=== PATIENT | male | born 1985 | race Two or more races ===

== ENCOUNTER 2024-06-29 16:00 | Inpatient (IN) | payer MEDICAID, OTHER ==
[~2024-06-29] VITALS: Ht 165.1 cm; Wt 71.6 kg
--- NOTE | 2024-06-29 16:18 | ED.PDOC ---
GI ASSESSMENT HPI Comments HPI: Poor Historian. 39 y.o male presents to the ED for an initial complaint of epigastric pain associated with nausea and 2 episodes of vomiting that started today at 0800. Patient reports pain is constant, raring a 10/10 on the pain scale, is non radiating, and has no alleviating or precipitating factors. Patient was seen at urgent care today for c/o but was sent to the ED due to blood glucose reading 448. Patient denies any diarrhea, constipation, fever, chills. Patient has family history of DM. Vital signs: BP: 147/95 HR: 95 Temp: 98.5 F SPO2: 98% RA RR: 16 Patient denies any allergies Past medical history: Denies Past surgical history: Appendectomy REVIEW OF SYSTEMS: CONSTITUTIONAL: Denies acute: fever, diaphoresis, chills, generalized weakness. HEAD: Denies acute: headache, photophobia Eyes: Denies acute: Double vision, vision loss, eye pain, eye discharge. EARS: Denies acute: tinnitus, hearing loss, ear discharge, ear pain, THROAT: Denies acute: sore throat, swelling, difficulty swallowing , pain with swallowing, change in voice. NECK: Denies acute: neck pain, neck swelling, stiff neck. HEART: Denies acute : chest pain, palpitations, LUNGS: Denies acute: SOB, wheezing, cough, hemoptysis ABDOMEN: Denies acute: , diarrhea, melena , hematemesis, hematochezia SKIN: Denies acute: rash, redness, lesions, itchiness. EXTREMITIES: Denies acute: calf pain, numbness, tingling, weakness, denies pain in extremity. Denies acute: Low back pain. Neuro: Denies acute: focal neurological deficit, motor or sensory focal neurological deficit, tremors, seizure like activity, confusion, dizziness, change in mental status, loss of bowel or bladder function, cauda equina like symptoms. : Denies acute: dysuria, hematuria, flank pain, increase in urinary frequency. PSYCH: Denies acute: hallucination, suicidal ideation, homicidal ideation. PHYSICAL EXAM: General: no acute distress, awake and alert. Head: normocephalic, atraumatic. Neck: supple, trachea is midline, no swelling. Throat: Normal phonation. Eyes:, no erythema, no purulent discharge, no proptosis, no icterus. Heart: regular rate, regular rhythm, no significant murmur appreciated. Lungs: no apparent respiratory distress, Able to speak in full sentences. No wheezing, no rhonchi, no crackles. No stridors Clear to auscultation bilaterally. Abdomen: Epigastric tender to palpation, non distended, soft, no guarding, no rebound, + bowel sounds. Neuro: Awake, Alert, oriented to name, self, situation, follows commands GCS=15. Speech is normal. Skin: no petechia, no purpura, no cyanosis, non-pale, not jaundice. Lower extremities: --no - Pitting edema no deformity, no focal swelling, no calf TTP. Makes eye contact. moves all four extremities. Face: no apparent facial droop. Ambulating in the ED independently. No nuchal rigidity, Kernig's sign, Brudzinski's sign, no meningeal signs. Time Seen by MD: 16:08 Reviewed Notes: Allergies Allergies: Coded Allergies: NO KNOWN ALLERGIES (Unverified , 06/29/24) Information Source: Patient Mode of Arrival: Ambulatory Timing: Hours Duration: Since onset Past Medical History PAST MEDICAL HISTORY: Denies Surgical History: Appendectomy Family History Family History: Family hx of DM Social History Smoker: Non-Smoker Alcohol: Occasionally Drugs: Denies Drug Use Lives In: Home Was a procedure done? Was a procedure done?: No GI differential Dx Differential Diagnosis: Gastroenteritis, Inflammatory BD, Other (DDX include but not limited to diverticulitis, colitis, gastroenteritis, acute abdomen, SBO, enteritis, constipation, volvulus, appendicitis, Gallbladder disease, choledocolithiasis, ascending cholangitis, pancreatitis, intraAbdominal mass/neoplasm, hepatitis, UTI, pylonephritis, kidney stone, aneurysm, dissection, Inflammatory bowel disease, gastroparesis, ischemic bowel.) X-Ray, Labs, Meds, VS Vital Signs Date Time Temp Pulse Resp B/P (MAP) Pulse Ox O2 Delivery O2 Flow Rate FiO2 06/29/24 19:40 Room Air* 0 21 06/29/24 19:40 94 18 101/75 (84) 98 06/29/24 17:26 98 16 144/95 (111) 96 06/29/24 16:15 98.5 95 16 147/95 (112) 98 Lab Test 06/29/24 19:40 06/29/24 18:10 06/29/24 17:29 06/29/24 17:26 Range/Units POC Glucose 316 H 337 H 70-106 mg/dl Urine Color Light-yellow Yellow Urine Clarity Clear Clear Urine pH 5.0 5.0-9.0 Urine Specific [place] 1.038 H 1.001-1.035 Urine Protein Negative Negative Urine Ketones 4+ H Negative Urine Blood Negative Negative /uL Urine Nitrite Negative Negative Urine Bilirubin Negative Negative Urine Urobilinogen Normal Negative mg/dL Urine Leukocyte Esterase Negative Negative /uL Urine RBC <1 0 - 3 /hpf Urine WBC <1 0 - 3 /hpf Urine Squamous Epithelial Cells None seen <5 /hpf Urine Bacteria None seen None Seen /hpf Urine Glucose 4+ H Normal mg/dL Urine Opiates Screen Neg NEGATIVE Urine Fentanyl Screen Neg NEGATIVE Urine Barbiturates Screen Neg NEGATIVE Urine Phencyclidine Screen Neg NEGATIVE Urine Amphetamines Screen Neg NEGATIVE Urine Benzodiazepines Screen Neg NEGATIVE Urine Cocaine Screen Neg NEGATIVE Urine Cannabinoids Screen Neg NEGATIVE Troponin I High Sensitivity < 3 L </=54 ng/L Test 06/29/24 16:36 Range/Units White Blood Count 10.2 4.4-10.8 10^3/uL Red Blood Count 4.51 4.5-5.90 10^6/uL Hemoglobin 13.3 L 13.5-17.5 g/dL Hematocrit 40.5 L 41.0-53.0 % Mean Corpuscular Volume 89.8 80.0-100.0 fL Mean Corpuscular Hemoglobin 29.4 28.0-32.0 pg Mean Corpuscular Hemoglobin Concent 32.7 32.0-36.0 g/dL Red Cell Distribution Width 14.3 11.8-14.3 % Platelet Count 206 140-450 10^3/uL Mean Platelet Volume 10.2 6.9-10.8 fL Neutrophils (%) (Auto) 87.8 H 37.0-80.0 % Lymphocytes (%) (Auto) 6.1 L 10.0-50.0 % Monocytes (%) (Auto) 5.9 0.0-12.0 % Eosinophils (%) (Auto) 0.1 0.0-7.0 % Basophils (%) (Auto) 0.3 0.0-2.0 % Neutrophils # (Auto) 7.9 1.6-8.6 10 ^3/uL Lymphocytes # (Auto) 0.5 0.4-5.4 10 ^3/uL Monocytes # (Auto) 0.5 0-1.3 10 ^3/uL Eosinophils # (Auto) 0 0-0.8 10 ^3/uL Basophils # (Auto) 0 0-0.2 10 ^3/uL Nucleated Red Blood Cells 0.3 % Sodium Level 129 L 136-145 mmol/L Potassium Level 5.1 3.5-5.1 mmol/L Chloride Level 97 L 98-107 mmol/L Carbon Dioxide Level 22 20-31 mmol/L Anion Gap 10 5-15 Blood Urea Nitrogen 10 9-23 mg/dL Creatinine 0.99 0.700-1.30 mg/dL Glomerular Filtration Rate Calc 99 >90 mL/min BUN/Creatinine Ratio 10.1 10.0-20.0 Serum Glucose 370 H 74-106 mg/dL Lactic Acid Level 1.2 0.4-2.0 mmol/L Calcium Level 9.9 8.7-10.4 mg/dL Magnesium Level 2.0 1.6-2.6 mg/dL Total Bilirubin 0.7 0.2-1.0 mg/dL Aspartate Amino Transferase (AST) 51 H 13-40 U/L Alanine Aminotransferase (ALT) 23 7-40 U/L Alkaline Phosphatase 61 46-116 U/L Troponin I High Sensitivity < 3 L </=54 ng/L Total Protein 7.4 5.7-8.2 g/dL Albumin 5.0 H 3.2-4.8 g/dL Lipase 944 H 12-53 U/L Beta-Hydroxybutyric Acid > 4.500 H < 0.4 mmol/L Current Medications Medications (Trade) Dose Ordered Sig/Shay Route Start Time Stop Time Status Last Admin Sodium Chloride 1,000 ml @ 1,000 mls/hr Q1H ONCE IV 06/29/24 16:15 06/29/24 17:14 DC 06/29/24 17:37 Insulin Human Regular (InsuLIN R) 5 units ONCE ONCE IV 06/29/24 19:00 06/29/24 19:01 DC 06/29/24 19:[address] [address] Ph: [phone] DIAGNOSTIC IMAGING Diagnostic Imaging Report : [id number] Signed PATIENT: RENAE CARLISLE ACCT: [id number] UNIT: [id number] : 1985 LOC: ER ROOM / BED: / AGE / SEX: 39 / M ADM STATUS: REG ER SERVICE 1617 ORDERING PHYSICIAN: CONNIE BRENNER DO PROCEDURE(s): ABPL - CT AB PEL WO CON-NO ORAL OR IV REASON: Epigastric pain with N/V ORDER NUMBER(s): [id number], ACCESSION NUMBER(s): [id number] CT ABDOMEN AND PELVIS WITHOUT CONTRAST CLINICAL HISTORY: Epigastric pain with N/V TECHNIQUE: Multidetector CT of the abdomen was performed from lung bases to pubic symphysis. Imaging was performed without IV contrast. Axial, coronal and sagittal multiplanar reformats were obtained from the axial data set by the technologist. Radiation optimization: All CT scans at this facility use at least one of these dose optimization techniques: automated exposure control mA and/or kV adjustment per patient size (includes targeted exams where dose is matched to clinical indication) or iterative reconstruction. Radiation Dose Information: CT Dose: CTDI volume is 7.65 mGy. Dose-length product is 393.19 mGy*cm Comparison: None FINDINGS: [Findings] Evaluation of the abdominal viscera is limited without intravenous contrast. There is fat stranding along the body and tail of the pancreas compatible with acute pancreatitis. There is no discrete pancreatic fluid collection. There is no evidence of a pancreatic cyst or obvious pancreatic lesion. There is fatty infiltration of the liver. There is no suspicious appearing hepatic lesion. The gallbladder, kidneys, adrenal glands, and spleen appear within normal limits. There is no gross evidence of abdominal lymphadenopathy. There is no free fluid or free air. The stomach grossly appears unremarkable. The small and large bowel loops demonstrate normal caliber and appear within normal limits.. The abdominal aorta and IVC appear within normal limits. The bladder appears unremarkable. The prostate gland appears within normal limits. There is no gross evidence of a pelvic mass or lymphadenopathy. There is no free fluid collection. Lung bases are clear. There is no acute osseous abnormality. IMPRESSION: 1. Fat stranding along the body and tail of the pancreas compatible with acute pancreatitis. There is no discrete pancreatic fluid collection. 2. Hepatic steatosis. HS:Y ATED BY: BRADLEY HOLLAND MD DICTATED DATE/TIME: 06/29/241652 SIGNED BY: BARDLEY HOLLAND MD SIGNED DATE/TIME: 06/29/241652 CC: Time of 1ST Reevaluation: 16:14 Reevaluation 1ST: Unchanged Time of 2ND Reevaluation: 18:48 (As of this time, multiple lab analysis are still pending including UA, drug screen, CMP ) Patient Education/Counseling: Diagnosis, Treatment Family Education/Counseling: No Family Present Comments Patient presented with the above HPI.--epigastric pain/-nausea vomiting---workup was initiated. patient was found with the above mentioned diagnosis. Patient Had a strong odor of marijuana. Patient was given: Fluids, Zofran, insulin Patient ED course and VS have been stabilized. Patient has been reassessed in the ED and remained in a stable condition. Pertinent incidental findings were discussed with the patient and/or family. Patient/family voices understanding and is agreeable with plan. Patient has been observed in the ED adequate length of time to insure improvement/stability. patient was admitted to the medicine team for further evaluation and treatment of their presentation. All the reports of any imaging studies that were ordered by myself were reviewed by myself. Departure 1 Departure Time of Disposition: 18:13 Impression: Primary Impression: Epigastric pain Additional Impressions: Pancreatitis Hyperglycemia Disposition: ADMITTED INPATIENT Admit to: Tele Condition: Guarded Discharged With: Self Critical Care Note Critical Care Time?: Yes (35 min-critical care time only) I personally scribed for CONNIE BRENNER DO ([email or web address]) on 06/29/24 at 16:18. Electronically submitted by [facility] ([facility]). I personally scribed for CONNIE BRENNER DO ([email or web address]) on 06/29/24 at 18:03. Electronically submitted by [place] [facility] ([facility]). I personally scribed for CONNIE BRENNER DO ([email or web address]) on 06/29/24 at 18:49. Autumn ctronically submitted by [place] ([facility]). CONNIE BRENNER DO Jun 29, 2024 16:18
--- NOTE | 2024-06-29 16:55 | DVH ---
CT ABDOMEN AND PELVIS WITHOUT CONTRAST CLINICAL HISTORY: Epigastric pain with N/V TECHNIQUE: Multidetector CT of the abdomen was performed from lung bases to pubic symphysis. Imaging was performed without IV contrast. Axial, coronal and sagittal multiplanar reformats were obtained fr om the axial data set by the technologist. Radiation optimization: All CT scans at this facility use at least one of these dose optimization carolin hniques: automated exposure control mA and/or kV adjustment per patient size (includes targeted exam s where dose is matched to clinical indication) or iterative reconstruction. Radiation Dose Information: CT Dose: CTDI volume is 7.65 mGy. Dose-length product is 393.19 mGy*cm Comparison: None FINDINGS: [Findings] Evaluation of the abdominal viscera is limited without intravenous contrast. There is fat stranding along the body and tail of the pancreas compatible with acute pancreatitis. Th ere is no discrete pancreatic fluid collection. There is no evidence of a pancreatic cyst or obvious pancreatic lesion. There is fatty infiltration of the liver. There is no suspicious appearing hepatic lesion. The gallbladder, kidneys, adrenal glands, and spleen appear within normal limits. There is no gross evidence of abdominal lymphadenopathy. There is no free fluid or free air. The stomach grossly appears unremarkable. The small and large bowel loops demonstrate normal caliber and appear within normal limits.. The abdominal aorta and IVC appear within normal limits. The bladder appears unremarkable. The prostate gland appears within normal limits. There is no gross evidence of a pelvic mass or lymphadenopathy. There is no free fluid collection. Lung bases are clear. There is no acute osseous abnormality. IMPRESSION: 1. Fat stranding along the body and tail of the pancreas compatible with acute pancreatitis. There is no discrete pancreatic fluid collection. 2. Hepatic steatosis. HS:Y
[2024-06-29] MEDS: SODIUM CHLORIDE 0.9% 1,000 ML IV ONE (17:37)
[2024-06-29 18:03] LABS: Basophils # (auto) 0 10 ^3/uL (0-0.2); Basophils % (auto) 0.3 % (0.0-2.0); Eosinophils # (auto) 0 10 ^3/uL (0-0.8); Eosinophils % (auto) 0.1 % (0.0-7.0); Hematocrit 40.5 % (41.0-53.0); Hemoglobin 13.3 g/dL (13.5-17.5); Lymphocytes # (auto) 0.5 10 ^3/uL (0.4-5.4); Lymphocytes % (auto) 6.1 % (10.0-50.0); Monocytes # (auto) 0.5 10 ^3/uL (0-1.3); Monocytes % (auto) 5.9 % (0.0-12.0); Neutrophils # (auto) 7.9 10 ^3/uL (1.6-8.6); Nucleated Red Blood Cells % 0.3 %; Red Blood Cells 4.51 10^6/uL (4.5-5.90); Red Cell Distribution Width 14.3 % (11.8-14.3)
[2024-06-29 18:08] LABS: Neutrophils % (auto) 87.8 % (37.0-80.0); White Blood Cell 10.2 10^3/uL (4.4-10.8)
[2024-06-29 18:09] LABS: Mean Corpuscular Hemoglobin 29.4 pg (28.0-32.0); Mean Corpuscular Hgb Conc. 32.7 g/dL (32.0-36.0); Mean Corpuscular Volume 89.8 fL (80.0-100.0); Platelet Count (auto) 206 10^3/uL (140-450)
[2024-06-29 18:12] LABS: Urine Bacteria None Seen /hpf (None Seen)
[2024-06-29 18:17] LABS: Chloride 97 mmol/L (98-107); Sodium 129 mmol/L (136-145)
[2024-06-29 18:20] LABS: Calcium 9.9 mg/dL (8.7-10.4)
[2024-06-29 18:24] LABS: Glucose 370 mg/dL (74-106)
[2024-06-29 18:48] LABS: Amphetamine Screen, Urine Neg (NEGATIVE)
[2024-06-29 18:49] LABS: Barbiturate Scree,Urine Neg (NEGATIVE); Benzodiazephine Screen, Urine Neg (NEGATIVE); Cannabinoid Screen, Urine Neg (NEGATIVE); Cocaine Screen, Urine Neg (NEGATIVE); Opiate Scree,Urine Neg (NEGATIVE); Phencyclidine Screen, Urine Neg (NEGATIVE)
[2024-06-29 19:06] LABS: Urine Blood Negative /uL (Negative); Urine Clarity Clear (Clear); Urine Color Light-Yellow (Yellow); Urine Protein, UAD Negative (Negative); Urine Specific Gravity 1.038 (1.001-1.035); Urine Urobilinogen Normal (Negative); Urine WBC <1 /hpf (0 - 3)
[2024-06-29 19:09] LABS: Alkaline Phosphatase 61 U/L (46-116); Anion Gap 10 (5-15); BUN/Creatinine Ratio 10.1 (10.0-20.0); Bilirubin, Total 0.7 mg/dL (0.2-1.0); Blood Urea Nitrogen 10 mg/dL (9-23); Carbon Dioxide 22 mmol/L (20-31); Lipase 944 U/L (12-53); Potassium 5.1 mmol/L (3.5-5.1); Total Protein 7.4 g/dL (5.7-8.2)
[2024-06-29 19:28] LABS: Alanine Aminotransferase 23 U/L (7-40); Aspartate Aminotransferase 51 U/L (13-40)
[2024-06-29] MEDS: InsuLIN REG 1unit/0.01ml Soln (100units/ml) IV ONE (19:45)
[2024-06-29] MEDS ORDERED: MORPHINE SULFATE INJ 2 MG/ml SYRG IV PRN (20:30)
[2024-06-29] MEDS ORDERED: NITROGLYCERIN 0.4 MG SL TAB SL PRN (20:30)
[2024-06-29 20:59] LABS: Eosinophils # (auto) 0 10 ^3/uL (0-0.8)
[2024-06-29 21:00] LABS: Lymphocytes # (auto) 0.5 10 ^3/uL (0.4-5.4)
[2024-06-29 21:20] LABS: Albumin 4.4 g/dL (3.2-4.8); Alkaline Phosphatase 61 U/L (46-116); Anion Gap 22.00001 (5-15); Bilirubin, Total 0.3 mg/dL (0.2-1.0); Blood Alcohol < 3.0 mg/dL (<10); Calcium 9.3 mg/dL (8.7-10.4); Chloride 97 mmol/L (98-107); Glucose 310 mg/dL (74-106); Potassium 4.3 mmol/L (3.5-5.1); Sodium 129 mmol/L (136-145); Total Protein 6.9 g/dL (5.7-8.2)
[2024-06-29 21:57] LABS: BUN/Creatinine Ratio 6.2 (10.0-20.0); Blood Urea Nitrogen < 5 mg/dL (9-23)
[2024-06-29 21:59] LABS: Carbon Dioxide < 10 mmol/L (20-31)
[2024-06-29 22:02] LABS: Aspartate Aminotransferase 29 U/L (13-40)
[2024-06-29 22:03] LABS: Alanine Aminotransferase 19 U/L (7-40); Lipase 444 U/L (12-53)
[2024-06-29 22:13] LABS: Basophils % (auto) 0.2 % (0.0-2.0); Lymphocytes % (auto) 5.7 % (10.0-50.0); Monocytes % (auto) 7.4 % (0.0-12.0); Neutrophils % (auto) 86.7 % (37.0-80.0); Platelet Count (auto) 206 10^3/uL (140-450); White Blood Cell 10.2 10^3/uL (4.4-10.8)
[2024-06-29 22:14] LABS: Basophils # (auto) 0.2 10 ^3/uL (0-0.2); Hematocrit 43.4 % (41.0-53.0); Monocytes # (auto) 0.6 10 ^3/uL (0-1.3); Neutrophils # (auto) 7.3 10 ^3/uL (1.6-8.6)
[2024-06-29 22:15] LABS: Mean Corpuscular Hemoglobin 31.2 pg (28.0-32.0); Mean Corpuscular Hgb Conc. 34.5 g/dL (32.0-36.0); Red Cell Distribution Width 13.2 % (11.8-14.3)
[2024-06-29] MEDS ORDERED: DEXTROSE (50%) 50ML SYRG IV PRN (22:15)
--- NOTE | 2024-06-29 22:28 | DVHHPRES ---
History of Present Illness Resident Creating Document: TERRY OWUSU RESIDENT History of Present Illness RENAE SMITH 39 years old male with no significant PMH presented to the ED with the chief complaints of acute epigastric pain which started in the morning before breakfast. Patient's reported pain has been started in the morning associated with nausea, vomiting, initially epigastric then diffuse left abdominal pain which is constant 10/10, nothing makes it better or worse, patient went to urgent care, advanced to go to ED due to symptoms and Thanh glucose reading for 48. On my assessment patient and his fever, chills, diarrhea, constipation, and other acute symptoms Past Medical History Denies Past Surgical History: Appendectomy Family History: DM Past Social History Lives with a friend. Every week 10 beers, last drink was yesterday. Denies smoking another drug abuse Review of Systems Constitutional: No: Fever, Chills, Sweats, Weakness, Malaise, Other Eyes: No: Pain, Vision change, Conjunctivae inflammation, Eyelid inflammation, Other, Redness ENT: No: Ear pain, Ear discharge, Nose pain, Nose discharge, Nose congestion, Mouth pain, Mouth swelling, Throat pain, Throat swelling, Other Respiratory: No: Cough, Dry, Shortness of breath, SOB with excertion, Wheezing, Hemoptysis, Pleuritic Pain, Sputum, Wheezing, Other Cardiovascular: No: Chest Pain, Palpitations, Orthopnea, Paroxysmal Noc. Dyspnea, Edema, Lt Headedness, Other Gastrointestinal: Nausea, Vomiting, Abdominal Pain Genitourinary: No Dysuria, No Frequency, No Incontinence, No Hematuria, No Retention, No Other Musculoskeletal: No: other, neck pain, shoulder pain, arm pain, back pain, hand pain, leg pain, foot pain Skin: No: Rash, Lesions, Jaundice, Bruising, Other Neurological: No: Weakness, Numbness, Incoordination, Change in speech, Confusion, Seizures, Other Allergies: Coded Allergies: NO KNOWN ALLERGIES (Unverified , 06/29/24) Medications Current Medications Medications Dose Ordered Sig/Shay Route Start Time Stop Time Status Last Admin Dose Admin Sodium Chloride 1,000 ml @ 120 mls/hr Q8H20M IV 06/29/24 20:30 Ondansetron HCl 4 mg Q4HP PRN IV 06/29/24 20:30 Acetaminophen 650 mg Q6HP PRN PO 06/29/24 20:30 Morphine Sulfate 2 mg Q4HPRN PRN IV 06/29/24 20:30 Nitroglycerin 0.4 mg Q5MINP PRN SL 06/29/24 20:30 Morphine Sulfate 2 mg Q30M PRN IV 06/29/24 20:30 Sodium Chloride 1,000 ml @ 500 mls/hr Q2H IV 06/29/24 22:15 06/30/24 02:14 Sodium Chloride 1,000 ml @ 250 mls/hr Q4H IV 06/30/24 02:15 06/30/24 04:14 Sodium Chloride 1,000 ml @ 150 mls/hr Q6H40M IV 06/30/24 04:15 Insulin Human (Reg)/Sodium Chloride 100 ml @ 0.5 mls/hr Q24H IV 06/29/24 22:15 Dextrose 50 ml UD PRN IV 06/29/24 22:15 Diagnostic Test (Pha) 1 strip Q90MIN 06/29/24 22:30 Exam Vital Signs Vital Signs Date Time Temp Pulse Resp B/P (MAP) Pulse Ox O2 Delivery O2 Flow Rate FiO2 06/29/24 19:40 Room Air* 0 21 06/29/24 19:40 94 18 101/75 (84) 98 06/29/24 16:15 98.5 Exam Pt is lying on bed General Appearance: Alert, Oriented X3, Cooperative, Not in acute distress HEENT: Atraumatic, Mucous membranes moist/pink Respiratory: Clear to auscultation, Normal air movement, No added sounds Cardiovascular: Regular rate, Normal S1, Normal S2, No murmurs Abdominal: Epigastric and, left-sided abdominal tenderness Extremities: No edema, Normal pulses, No tenderness/swelling Skin: No Significant rash, except past surgical scars Neuro: Normal speech, sensorimotor deficits none Psych/Mental Status: Mental status NL, Mood NL Nurse was there as sharperone during examination Labs/Xrays Labs Test 06/29/24 22:11 06/29/24 20:47 06/29/24 19:40 06/29/24 18:10 Range/Units White Blood Count 10.2 4.4-10.8 10^3/uL Red Blood Count 4.80 4.5-5.90 10^6/uL Hemoglobin 15.0 13.5-17.5 g/dL Hematocrit 43.4 41.0-53.0 % Mean Corpuscular Volume 90.0 80.0-100.0 fL Mean Corpuscular Hemoglobin 31.2 28.0-32.0 pg Mean Corpuscular Hemoglobin Concent 34.5 32.0-36.0 g/dL Red Cell Distribution Width 13.2 11.8-14.3 % Platelet Count 206 140-450 10^3/uL Mean Platelet Volume 10.3 6.9-10.8 fL Neutrophils (%) (Auto) 86.7 H 37.0-80.0 % Lymphocytes (%) (Auto) 5.7 L 10.0-50.0 % Monocytes (%) (Auto) 7.4 0.0-12.0 % Eosinophils (%) (Auto) 0.0 0.0-7.0 % Basophils (%) (Auto) 0.2 0.0-2.0 % Neutrophils # (Auto) 7.3 1.6-8.6 10 ^3/uL Lymphocytes # (Auto) 0.5 0.4-5.4 10 ^3/uL Monocytes # (Auto) 0.6 0-1.3 10 ^3/uL Eosinophils # (Auto) 0 0-0.8 10 ^3/uL Basophils # (Auto) 0.2 0-0.2 10 ^3/uL Nucleated Red Blood Cells 0.0 % Sodium Level 129 L 136-145 mmol/L Potassium Level 4.3 3.5-5.1 mmol/L Chloride Level 97 L 98-107 mmol/L Carbon Dioxide Level < 10 #*L 20-31 mmol/L Anion Gap 22.20274 H 5-15 Blood Urea Nitrogen < 5 L 9-23 mg/dL Creatinine 0.81 0.700-1.30 mg/dL Glomerular Filtration Rate Calc 114 >90 mL/min BUN/Creatinine Ratio 6.2 L 10.0-20.0 Serum Glucose 310 H 74-106 mg/dL Calcium Level 9.3 8.7-10.4 mg/dL Total Bilirubin 0.3 0.2-1.0 mg/dL Aspartate Amino Transferase (AST) 29 13-40 U/L Alanine Aminotransferase (ALT) 19 7-40 U/L Alkaline Phosphatase 61 46-116 U/L Total Protein 6.9 5.7-8.2 g/dL Albumin 4.4 3.2-4.8 g/dL Lipase 444 H 12-53 U/L Plasma/Serum Blood Alcohol < 3.0 <10 mg/dL POC Glucose 316 H 70-106 mg/dl Urine Color Light-yellow Yellow Urine Clarity Clear Clear Urine pH 5.0 5.0-9.0 Urine Specific [place] 1.038 H 1.001-1.035 Urine Protein Negative Negative Urine Ketones 4+ H Negative Urine Blood Negative Negative /uL Urine Nitrite Negative Negative Urine Bilirubin Negative Negative Urine Urobilinogen Normal Negative mg/dL Urine Leukocyte Esterase Negative Negative /uL Urine RBC <1 0 - 3 /hpf Urine WBC <1 0 - 3 /hpf Urine Squamous Epithelial Cells None seen <5 /hpf Urine Bacteria None seen None Seen /hpf Urine Glucose 4+ H Normal mg/dL Urine Opiates Screen Neg NEGATIVE Urine Fentanyl Screen Neg NEGATIVE Urine Barbiturates Screen Neg NEGATIVE Urine Phencyclidine Screen Neg NEGATIVE Urine Amphetamines Screen Neg NEGATIVE Urine Benzodiazepines Screen Neg NEGATIVE Urine Cocaine Screen Neg NEGATIVE Urine Cannabinoids Screen Neg NEGATIVE Test 06/29/24 17:29 06/29/24 16:36 Range/Units Troponin I High Sensitivity < 3 L </=54 ng/L Lactic Acid Level 1.2 0.4-2.0 mmol/L Assessment/Plan Assessment/Plan # acute pancreatitis due to hypertriglyceridemia -elevated lipase ang TG -evident on CT abdomen and pelvis -morphine and Zofran as needed -NPO for now -IVF @ 120 mL/hour -monitor lab # hyponatremia -currently on IVF -monitor lab # DKA # anion gap metabolic acidosis # severe hyperglycemia bc newly diagnosed T2DM DM -currently on insulin protocol -continuously monitor lab -correct electrolytes if needed No VTE PPX as patient is ambulatory Protonix Diabetic diet Goals of care discussed with the patient for more than 27 minutes: Full code status Case management discussed with Dr. Greco, patient's nurse Plan discussed with: Patient My Orders Orders - TERRY OWUSU RESIDENT Procedure Category Date Status Time Allergies CHANDU 06/29/24 In Process 20:20 Sodium Chloride 0.9% PHA 06/29/24 In Process 20:30 Ondansetron Hcl PHA 06/29/24 In Process (Zofran) 20:30 Complete Blood Count LAB 06/30/24 Verified 04:00 Comprehensive LAB 06/30/24 Verified Metabolic Panel 04:00 Npo (Nothing By DIET 06/30/24 Transmitted Mouth) Diet Breakfast Acetaminophen Tablet PHA 06/29/24 In Process (Tylenol Tablet) 20:30 Morphine Sulfate PHA 06/29/24 In Process Injection 20:30 Nitroglycerin PHA 06/29/24 In Process Sublingual (Ntrostat 20:30 Morphine Sulfate PHA 06/29/24 In Process Injection 20:30 Oxygen By Nasal RT 06/29/24 Transmitted Cannula 20:20 Stat Ekg For Chest CHANDU 06/29/24 In Process Pain 20:20 Notify Of Changes CHANDU 06/29/24 In Process From Base 20:20 Bed Laborer For BANNER 06/29/24 In Process 24 Hours 20:20 Emergency Dysrhythmia BANNER 06/29/24 In Process Protocol 20:20 Rhythm Strips Once BANNER 06/29/24 In Process Every Shift 20:20 Admit ADMIT 06/29/24 Transmitted 22:06 Abg W/ Co-Ox RT 06/29/24 Logged 22:06 Hemoglobin A1c LAB 06/29/24 Logged 22:06 Vitamin D, 25-Hydroxy LAB 06/29/24 Logged 22:06 Vitamin B12 LAB 06/29/24 Logged 22:06 Thyroid Stimulating LAB 06/29/24 Logged Hormone 22:06 Lipid Panel LAB 06/29/24 Logged 22:06 Chest Xray 1 View XY 06/29/24 Taken 22:08 Lactic Acid W/ Reflex LAB 06/29/24 Logged Order 22:14 TERRY OWUSU RESIDENT Jun 29, 2024 22:28
[2024-06-29 22:39] LABS: Base Excess -11.9 mmol/L (-2.0-3.0)
[2024-06-29] MEDS: SODIUM CHLORIDE 0.9% 1,000 ML IV SCH ×2 (22:50→23:30)
--- NOTE | 2024-06-29 22:58 | DVH ---
CHEST RADIOGRAPH Indication:sob Technique: Single frontal view of the chest was obtained Comparison: None FINDINGS: Lines and Tubes: None Lungs: No focal consolidation. Pleura: No effusion. No pneumothorax. Cardiomediastinal contours: Unremarkable Bones: No acute osseous abnormality. IMPRESSION: No acute cardiopulmonary disease.
[2024-06-29 23:00] VITALS: PULSE 95; RESP 26; O2SAT 97
[2024-06-29] MEDS: INSULIN DRIP 100 UNIT/100ML 100 ML IV SCH (23:10)
[2024-06-29] MEDS: ACCU-CHEK COMFORT CURVE STRIP VI SCH (23:12)
[2024-06-29 23:24] LABS: LDL Cholesterol 55 mg/dL (< 100)
[2024-06-29 23:25] LABS: Cholesterol 412 mg/dL (< 200)
[2024-06-29 23:26] LABS: Magnesium 1.9 mg/dL (1.6-2.6); Phosphorus 2.9 mg/dL (2.4-5.1)
[2024-06-29 23:54] LABS: HDL Cholesterol 24 mg/dL (40-59)
[2024-06-30] VITALS (19 sets, daily range): BP systolic 108–139; BP diastolic 72–91; PULSE 96–114; RESP 15–44; TEMP 99.6; O2SAT 93–99
[2024-06-30 01:50] LABS: Triglycerides 1969 mg/dL (< 150)
[2024-06-30] MEDS: MORPHINE SULFATE INJ 2 MG/ml SYRG IV PRN (01:53)
[2024-06-30] MEDS: ONDANSETRON HCL 4 MG/2 ML VIAL IV PRN (01:55)
[2024-06-30] MEDS ORDERED: SODIUM CHLORIDE 0.9% 1,000 ML IV SCH ×2 (02:15→04:15)
[2024-06-30] MEDS: D5W/SOD CHL 0.45% 1,000 ML IV SCH (02:30)
[2024-06-30 07:33] LABS: Albumin 3.9 g/dL (3.2-4.8); Alkaline Phosphatase 51 U/L (46-116); Anion Gap 16.00001 (5-15); Basophils # (auto) 0.1 10 ^3/uL (0-0.2); Basophils % (auto) 1.2 % (0.0-2.0); Bilirubin, Total 0.5 mg/dL (0.2-1.0); Calcium 8.4 mg/dL (8.7-10.4); Chloride 107 mmol/L (98-107); Eosinophils # (auto) 0 10 ^3/uL (0-0.8); Eosinophils % (auto) 0.2 % (0.0-7.0); Glucose 260 mg/dL (74-106); Hematocrit 39.7 % (41.0-53.0); Lymphocytes # (auto) 0.7 10 ^3/uL (0.4-5.4); Lymphocytes % (auto) 10.7 % (10.0-50.0); Mean Corpuscular Volume 90.2 fL (80.0-100.0); Monocytes # (auto) 0.8 10 ^3/uL (0-1.3); Monocytes % (auto) 13.1 % (0.0-12.0); Neutrophils # (auto) 4.7 10 ^3/uL (1.6-8.6); Neutrophils % (auto) 74.8 % (37.0-80.0); Nucleated Red Blood Cells % 0.7 %; Platelet Count (auto) 388 10^3/uL (140-450); Sodium 133 mmol/L (136-145); Total Protein 6.3 g/dL (5.7-8.2); White Blood Cell 6.3 10^3/uL (4.4-10.8)
[2024-06-30 07:34] LABS: Mean Corpuscular Hgb Conc. 37.6 g/dL (32.0-36.0)
[2024-06-30 07:40] LABS: Alanine Aminotransferase 14 U/L (7-40); Aspartate Aminotransferase 24 U/L (13-40)
[2024-06-30 07:41] LABS: BUN/Creatinine Ratio 6.8 (10.0-20.0); Blood Urea Nitrogen < 5 mg/dL (9-23)
[2024-06-30 07:44] LABS: Carbon Dioxide < 10 mmol/L (20-31)
[2024-06-30 08:08] LABS: Anisocytosis Slight; Platelet Estimate Adequate
--- NOTE | 2024-06-30 08:48 | DVHPNRES ---
Progress Note Date Seen: Jun 30, 2024 Resident Creating Document: DENIA NAVA RESIDENT Has the PT tested + for MRSA If YES, has PT been informed?: No Medical Necessity Reason Pt with a Central, PICC or Fol: No Subjective Review of Systems Saw the patient at bedside with a flower shop laborer/designer and along with my attending. Patient's questions concerns answered and detailed history taken. Patient reports: No new complaints, Feels better Changes from previous H/P or p: No Changes Review of Systems: HEENT:Normal, CVS:Normal, RESPIRATORY:Normal, GI:Abnormal (Acute abdominal pain 06/01, radiation from left upper quadrant to periumbilical area, piercing sharp in nature), :Abnormal (Dark concentrated urine), MSK:Normal, NEURO:Normal Objective vital signs Vital Sign Date Time Temp Pulse Resp B/P (MAP) Pulse Ox O2 Delivery O2 Flow Rate FiO2 06/30/24 07:30 98.2 100 27 121/78 (92) 95 98.2 06/29/24 23:00 Room Air* 0 21 Total Intake and Output 06/29/24 06/29/24 06/30/24 15:00 23:00 07:00 Intake Total 1846 ml Balance 1846 ml medications Current Medications Medications Dose Ordered Sig/Shay Route Start Time Stop Time Status Last Admin Dose Admin Ondansetron HCl 4 mg Q4HP PRN IV 06/29/24 20:30 06/30/24 01:55 4 MG Acetaminophen 650 mg Q6HP PRN PO 06/29/24 20:30 Morphine Sulfate 2 mg Q4HPRN PRN IV 06/29/24 20:30 06/30/24 01:53 2 MG Nitroglycerin 0.4 mg Q5MINP PRN SL 06/29/24 20:30 Morphine Sulfate 2 mg Q30M PRN IV 06/29/24 20:30 Insulin Human (Reg)/Sodium Chloride 100 ml @ 0.5 mls/hr Q24H IV 06/29/24 22:15 06/30/24 01:30 0.5 MLS/HR Dextrose 50 ml UD PRN IV 06/29/24 22:15 Diagnostic Test (Pha) 1 strip Q90MIN 06/29/24 22:30 06/30/24 07:30 1 STRIP Dextrose/Sodium Chloride 1,000 ml @ 200 mls/hr Q5H IV 06/30/24 02:30 06/30/24 02:30 200 MLS/HR Examination: GENERAL:Normal (Noted in acute distress, fruity smell.), HEENT:Normal, NECK:Normal, LUNGS:Abnormal (Patient breathing in the room air but shallow rapid breathing. At the time of checking no use of accessory muscles), CVS:Normal, ABDOMEN:Abnormal (Left upper quadrant severe tenderness, Brothers's negative, McBurney's negative, Rovsing negative, BS positive, abdomen soft, negative for carbo rigidity, mildly distended), MSK:Normal, SKIN:Normal, NEURO:Normal, :Normal laboratory and microbiology Laboratory Tests 06/30/24 05:29 Test 06/30/24 05:29 Range/Units Serum Glucose 260 H 74-106 mg/dL Labs and/or images reviewed: Labs reviewed by me, Image(s) reviewed by me Problem List/Assessment/Plan Problem List/Assessment/Plan Hospital course: David Childs, a 39-year-old male with a history of appendectomy and a family history of diabetes, presented to the ED with acute epigastric pain that began before breakfast and later became diffuse left abdominal pain, rated 10/10. His symptoms included nausea and vomiting, with no relief from any measures. He was referred to the ED from urgent care due to his symptoms and a glucose reading of 480s. He drinks 4-10 beers every weekend, with his last drink being yesterday, but denies smoking and drug abuse. He lives with a friend, did not follow up with the PCP and does not take any medications. He denies any similar previous episode and has no fever, chills, diarrhea, or constipation. # Acute pancreatitis due to Hypertriglyceridemia: No known previous history, we will check the patient's DD trending, on IV insulin drip along with D5, we will try to keep the blood glucose the safe range of 140-180, continue NPO as patient is not tolerating diet. Continue IV fluid, at present no signs of ARDS, intra-abdominal infection Or surgical abdomen. Unremarkable so far score, no lactic acidosis. pain management with IV Toradol scheduled along with breakthrough pain management with IV morphine. We will try to avoid morphine. Although low probability, rule out gallstone pancreatitis with RUQ U/S. # acute hyper triglyceridemia with a baseline of undiscovered familial high TG: Needs further evaluation, when the TG less than 500 we will start the patient on ezetimibe, neomycin /[place] fatty acid, dietary restriction, basal bolus insulin and other supportive treatments. # SIRS reaction: Elevated temperature, heart rate more than 90 likely due to inflammatory process. Follow daily CBC and look for amino signs of hypocalcemia, hemo concentration, lactic acidosis or acute abdominal/ surgical compensation. Unlikely accompanying infection, at this time we will defer antibiotics. # hypovolemic hyponatremia: Mild hyponatremia despite adjusting for serum glucose. Could be a case of pseudo hyponatremia partially contributed by hypertriglyceridemia. Recheck BMP q.6 for now. Avoid rapid correction limiting to 6-8 mEq per 24 hour, very unlikely to happen though. # DKA vs starvation ketosis: At the time of presentation patient did not have anion gap metabolic acidosis, hyperosmolarity, but due to nausea vomiting patient developed elevated ketosis, dehydration and further acidosis with concurrent undiscovered diabetes. # Uncontrolled diabetes mellitus, newly discovered: Patient in no any previous history, likely type 2 versus type 1, HbA1c 12, basal bolus SSI to keep the blood glucose between 140-180. patient needs diabetic education, basal bolus dose when able to tolerate diet. # Dyslipidemia: After the acute phase patient will be started on moderate to high intensity of atorvastatin and follow up intermittently for further cardiovascular risk management. # anion gap metabolic acidosis : Gap closed but patient is still on IV insulin drip. Likely compensating with tachypnea , check ABG, look for respiratory failure/ respiratory fatigue. # severe hyperglycemia bc newly diagnosed T2DM versus type 1 DM: Given patient's comparatively modest BMI 26.3, high suspicion of type 1 DM, controlling DM likely will benefit the hypertriglyceridemia as well. # Impending hypokalemia likely: Repeat labs show downtrending of potassium on IV insulin. Added 40 IV potassium with recheck in the a.m.. # Acute alcohol abuse: With binge drinking episodes. Up to 6-10 beers in the weekends. Patient is not clear about alcohol history we will have high suspicion of alcohol withdrawal and we will implement CIWA protocol. # likely fatty liver disease: Noted hepatic steatosis in the CT abdomen. follow ultrasound liver and further lifestyle modification and counseling regarding fatty liver and risk of GIPSON/MASH. Strictly avoid alcohol. # Diet: Patient was tried on clear liquid diet, developed worsening hypertriglyceridemia and acute abdominal pain. Patient kept NPO for now. June steen evaluate the patient for oral diet tolerance prior to start for basal bolus SSI. PCP: No established PCP, at discharge we will follow up with discharge Clinic. Needs to establish care. Barriers to discharge: Ongoing medical treatment. At recovery we will consider home Discharge, with follow up with the primary care physician, discharge Clinic , new medication along with insulin. Discussed with Dr. Elkins Code status: Full code. Care discussion needed 41 minutes of discussion. Plan discussed with the patient with the presence of flower shop laborer/designer. Plan discussed with: Patient, Other (RN, primary team.) My Orders My Orders Orders - DENIA NAVA RESIDENT Procedure Category Date Status Time * Critical Care CONS 06/30/24 Transmitted Consult 08:44 Provide Diabetic ORDERS 06/30/24 Transmitted Education 08:45 Laboratory Results Laboratory Tests 06/30/24 05:29 Chemistry Test 06/29/24 16:36 06/29/24 20:47 06/29/24 22:21 06/30/24 05:29 Albumin 5.0 g/dL (3.2-4.8) H 4.4 g/dL (3.2-4.8) 3.9 g/dL (3.2-4.8) Calcium Level 9.9 mg/dL (8.7-10.4) 9.3 mg/dL (8.7-10.4) 8.4 mg/dL (8.7-10.4) L Magnesium Level 2.0 mg/dL (1.6-2.6) 1.9 mg/dL (1.6-2.6) Total Protein 7.4 g/dL (5.7-8.2) 6.9 g/dL (5.7-8.2) 6.3 g/dL (5.7-8.2) Phosphorus Level 2.9 mg/dL (2.4-5.1) Lipid panel Test 06/29/24 16:36 06/29/24 20:47 06/29/24 22:21 Lipase 944 U/L (12-53) H 444 U/L (12-53) H Cholesterol Level 412 mg/dL (< 200) H HDL Cholesterol 24 mg/dL (40-59) L Triglycerides Level 1969 mg/dL (< 150) H LFT Test 06/29/24 16:36 06/29/24 20:47 06/30/24 05:29 Alanine Aminotransferase (ALT) 23 U/L (7-40) 19 U/L (7-40) 14 U/L (7-40) Alkaline Phosphatase 61 U/L (46-116) 61 U/L (46-116) 51 U/L (46-116) Aspartate Amino Transferase (AST) 51 U/L (13-40) H 29 U/L (13-40) 24 U/L (13-40) Total Bilirubin 0.7 mg/dL (0.2-1.0) 0.3 mg/dL (0.2-1.0) 0.5 mg/dL (0.2-1.0) HgA1c, TSH Test 06/29/24 22:21 Hemoglobin A1c 12.4 % A1C (<5.7) H Thyroid Stimulating Hormone (TSH) 0.29 uIU/mL (0.55-4.78) L Urinalysis Test 06/29/24 18:10 Urine Color Light-yellow (Yellow) Urine Clarity Clear (Clear) Urine pH 5.0 (5.0-9.0) Urine Specific [place] 1.038 (1.001-1.035) Urine Protein Negative (Negative) Urine Ketones 4+ (Negative) H Urine Blood Negative /uL (Negative) Urine Nitrite Negative (Negative) Urine Bilirubin Negative (Negative) Urine Urobilinogen Normal mg/dL (Negative) Urine Leukocyte Esterase Negative /uL (Negative) Urine RBC <1 /hpf (0 - 3) Urine WBC <1 /hpf (0 - 3) Urine Squamous Epithelial Cells None seen /hpf (<5) Urine Bacteria None seen /hpf (None Seen) Urine Glucose 4+ mg/dL (Normal) H Blood Gas Results Test 06/29/24 22:20 Arterial Blood pH 7.311 (7.350-7.450) FiO2 % 21.0 Date of Service: Jun 30, 2024 Billing Provider: SYLVESTER ELKINS MD Common Visit Codes: [id number] INP/OBS CARE(HIGH) Coding Comment Comment I saw and evaluated the patient. I reviewed the residents note and agree with findings and plan as documented in the residents note. DENIA NAVA RESIDENT Jun 30, 2024 08:48 SYLVESTER ELKINS MD Jul 01, 2024 22:58
[2024-06-30 09:14] LABS: Free T3 1.74 pg/mL (2.3-4.2); Free T4 (Free Thyroxine) 1.09 ng/dL (0.89-1.76)
[2024-06-30 13:13] LABS: Chloride 105 mmol/L (98-107); Sodium 129 mmol/L (136-145)
[2024-06-30 13:14] LABS: Anion Gap 7 (5-15); Calcium 8.6 mg/dL (8.7-10.4); Carbon Dioxide 17 mmol/L (20-31)
[2024-06-30 13:19] LABS: Glucose 225 mg/dL (74-106)
[2024-06-30 13:44] LABS: BUN/Creatinine Ratio 7.8 (10.0-20.0); Blood Urea Nitrogen < 5 mg/dL (9-23); Potassium 3.7 mmol/L (3.5-5.1)
[2024-06-30] MEDS: ACETAMINOPHEN 325 MG TAB PO PRN (17:36)
[2024-06-30 19:00] LABS: Chloride 103 mmol/L (98-107); Sodium 131 mmol/L (136-145)
[2024-06-30 19:01] LABS: Anion Gap 8 (5-15); Calcium 8.9 mg/dL (8.7-10.4); Carbon Dioxide 20 mmol/L (20-31)
[2024-06-30 19:03] LABS: Potassium 3.7 mmol/L (3.5-5.1)
[2024-06-30 19:06] LABS: Glucose 230 mg/dL (74-106)
[2024-06-30 19:27] LABS: BUN/Creatinine Ratio 6.8 (10.0-20.0); Blood Urea Nitrogen < 5 mg/dL (9-23)
[2024-06-30] MEDS: KETOROLAC TROMETH 30 MG/ML 1ML VIAL IV SCH (20:29)
[2024-06-30] MEDS: LACTATED RINGER'S 1,000 ML IV ONE (20:30)
[2024-06-30 22:19] LABS: Base Excess -4.5 mmol/L (-2.0-3.0)
[2024-06-30] MEDS: POTASSIUM CHLORIDE 40 MEQ, LIDOCAINE 1% (LOCAL ANESTH.) 4 ML in SODIUM CHL 0.9% 250 ML IV ONE (22:42)
[2024-07-01] VITALS (24 sets, daily range): BP systolic 99–124; BP diastolic 65–84; PULSE 94–123; RESP 21–37; TEMP 98.5–100.3; O2SAT 94–97
[2024-07-01 00:49] LABS: Chloride 107 mmol/L (98-107); Sodium 133 mmol/L (136-145)
[2024-07-01 00:50] LABS: Anion Gap 5 (5-15); Calcium 8.7 mg/dL (8.7-10.4); Carbon Dioxide 21 mmol/L (20-31)
[2024-07-01 00:55] LABS: Glucose 235 mg/dL (74-106)
[2024-07-01 01:05] LABS: Potassium 3.7 mmol/L (3.5-5.1)
[2024-07-01 01:13] LABS: BUN/Creatinine Ratio 7.6 (10.0-20.0); Blood Urea Nitrogen < 5 mg/dL (9-23)
[2024-07-01 06:02] LABS: Basophils # (auto) 0 10 ^3/uL (0-0.2); Basophils % (auto) 0.3 % (0.0-2.0); Eosinophils # (auto) 0 10 ^3/uL (0-0.8); Eosinophils % (auto) 0.1 % (0.0-7.0); Hematocrit 37.5 % (41.0-53.0); Hemoglobin 13.3 g/dL (13.5-17.5); Lymphocytes # (auto) 0.5 10 ^3/uL (0.4-5.4); Lymphocytes % (auto) 11.5 % (10.0-50.0); Mean Corpuscular Hemoglobin 31.6 pg (28.0-32.0); Mean Corpuscular Hgb Conc. 35.5 g/dL (32.0-36.0); Mean Corpuscular Volume 89.1 fL (80.0-100.0); Monocytes # (auto) 0.6 10 ^3/uL (0-1.3); Monocytes % (auto) 13.3 % (0.0-12.0); Neutrophils # (auto) 3.5 10 ^3/uL (1.6-8.6); Neutrophils % (auto) 74.8 % (37.0-80.0); Nucleated Red Blood Cells % 0.2 %; Platelet Count (auto) 129 10^3/uL (140-450); Red Blood Cells 4.21 10^6/uL (4.5-5.90); Red Cell Distribution Width 13.5 % (11.8-14.3); White Blood Cell 4.7 10^3/uL (4.4-10.8)
[2024-07-01 06:10] LABS: Chloride 107 mmol/L (98-107); Potassium 3.1 mmol/L (3.5-5.1); Sodium 134 mmol/L (136-145)
[2024-07-01 06:11] LABS: Anion Gap 8 (5-15); Carbon Dioxide 19 mmol/L (20-31)
[2024-07-01 06:12] LABS: Calcium 8.6 mg/dL (8.7-10.4)
[2024-07-01 06:16] LABS: Glucose 219 mg/dL (74-106)
[2024-07-01 06:18] LABS: BUN/Creatinine Ratio 8.2 (10.0-20.0); Blood Urea Nitrogen < 5 mg/dL (9-23)
[2024-07-01 06:43] LABS: Triglycerides 606 mg/dL (< 150)
[2024-07-01] MEDS: POTASSIUM CHL 20MEQ/100ML 100 ML IV SCH ×2 (06:54→18:56)
--- NOTE | 2024-07-01 09:16 | DVH ---
Procedure: US LIVER 07/01/2024 08:04 AM Indication: rule out stone.. Comparison: None Technique: Grayscale and color images of the right upper quadrant were obtained. FINDINGS: ASCITES: None. LIVER: Liver measures 16 cm craniocaudal. Liver parenchyma is diffusely echogenic. No focal lesion is identified. No intrahepatic ductal dilatation. Normal directional flow is seen in the portal vein. GALLBLADDER: No gallstones. No gallbladder wall edema or pericholecystic fluid. Sonographic Brothers's sign is negative. COMMON BILE DUCT: Not visualized. PANCREAS: Visualized portions are unremarkable. RIGHT KIDNEY: Normal in size, L1 0.2 cm in length without hydronephrosis. No focal lesions identified . AORTA, IVC: Visualized portions are unremarkable. OTHER: None. IMPRESSION: 1. No sonographic evidence for acute abnormality in the right upper quadrant. No cholelithiasis or ri ght renal calculi are identified. 2. Hepatic steatosis.
[2024-07-01 12:41] LABS: Chloride 108 mmol/L (98-107); Potassium 3.4 mmol/L (3.5-5.1); Sodium 134 mmol/L (136-145)
[2024-07-01 12:42] LABS: Anion Gap 5 (5-15); Calcium 8.7 mg/dL (8.7-10.4); Carbon Dioxide 21 mmol/L (20-31)
[2024-07-01 12:47] LABS: Glucose 231 mg/dL (74-106)
[2024-07-01 13:21] LABS: BUN/Creatinine Ratio 7.7 (10.0-20.0); Blood Urea Nitrogen < 5 mg/dL (9-23)
[2024-07-01] MEDS: INSULIN LANTUS (GLARGINE) 1 /0.01ml (100units/ml) SC ONE (13:59)
[2024-07-01] MEDS: D5W/SOD CHL 0.45% 1,000 ML IV SCH (14:27)
--- NOTE | 2024-07-01 14:42 | DVHPN2 ---
Subjective 39-year-old male with vyf-shzmwqd-nheindnda diabetes admitted for DKA and pancreatitis, found to have hypertriglyceridemia. Started on insulin drip, transferred to [facility] Total critical care time spent on this patient more than 30 minutes including evaluation, chart review, formulating plan and communication with team, excluding any procedures Reviewed: H&P Changes from previous H/P or p: No Changes Eyes: No Pain, No Vision change, No Conjunctivae inflammation, No Eyelid inflammation, No Other, No Redness ENT: No Ear pain, No Ear discharge, No Nose pain, No Nose discharge, No Nose congestion, No Mouth pain, No Mouth swelling, No Throat pain, No Throat swelling, No Other Cardiovascular: No Chest Pain, No Palpitations, No Orthopnea, No Paroxysmal Noc. Dyspnea, No Edema, No Lt Headedness, No Other Respiratory: No Cough, No Dry, No Shortness of breath, No SOB with excertion, No Wheezing, No Hemoptysis, No Pleuritic Pain, No Sputum, No Other Gastrointestinal: Nausea, Vomiting, Abdominal Pain Genitourinary: No Dysuria, No Frequency, No Incontinence, No Hematuria, No Retention, No Other Musculoskeletal: No other, No neck pain, No shoulder pain, No arm pain, No back pain, No hand pain, No leg pain, No foot pain Skin: No Rash, No Lesions, No Jaundice, No Bruising, No Other Objective Vitals Vital Signs Date Time Temp Pulse Resp B/P (MAP) Pulse Ox O2 Delivery O2 Flow Rate FiO2 07/01/24 12:00 100.3 123 22 103/73 (83) 96 100.3 07/01/24 08:00 Room Air* 0 21 Intake/Output Intake and Output 07/01/24 07:00 Intake Total 5964.5 ml Output Total 2705 ml Balance 3259.5 ml Intake Oral 450 ml IV Total 5514.5 ml Output Urine Total 2675 ml Stool Total 30 ml # Voids 2 # Bowel Movements 1 Exam Alert, oriented x3 PERRLA No JVD Clear breath sounds bilaterally S1-S2 regular rate and rhythm no murmur Abdomen mildly tender, improving from last time Equal strength bilaterally on upper and lower extremities No lower extremity edema Medications Current Medications Medications Dose Ordered Sig/Sahy Route Start Time Stop Time Status Last Admin Dose Admin Ondansetron HCl 4 mg Q4HP PRN IV 06/29/24 20:30 06/30/24 11:09 4 MG Acetaminophen 650 mg Q6HP PRN PO 06/29/24 20:30 06/30/24 17:36 650 MG Morphine Sulfate 2 mg Q4HPRN PRN IV 06/29/24 20:30 06/30/24 11:10 2 MG Nitroglycerin 0.4 mg Q5MINP PRN SL 06/29/24 20:30 Morphine Sulfate 2 mg Q30M PRN IV 06/29/24 20:30 Insulin Human (Reg)/Sodium Chloride 100 ml @ 0.5 mls/hr Q24H IV 06/29/24 22:15 07/01/24 00:30 2 MLS/HR Dextrose 50 ml UD PRN IV 06/29/24 22:15 Diagnostic Test (Pha) 1 strip Q90MIN 06/29/24 22:30 07/01/24 13:59 1 STRIP Ketorolac Tromethamine 15 mg Q6HR IV 06/30/24 20:00 07/05/24 19:59 07/01/24 12:17 15 MG Insulin Glargine 20 units HS SC 07/01/24 22:00 Dextrose/Sodium Chloride 1,000 ml @ 100 mls/hr Q10H IV 07/01/24 14:00 07/01/24 14:27 100 MLS/HR Laboratory Results Laboratory Tests 07/01/24 05:07 07/01/24 12:00 Chemistry Test 06/30/24 18:15 07/01/24 00:20 07/01/24 05:07 07/01/24 12:00 Calcium Level 8.9 mg/dL (8.7-10.4) 8.7 mg/dL (8.7-10.4) 8.6 mg/dL (8.7-10.4) L 8.7 mg/dL (8.7-10.4) Lipid panel Test 06/30/24 18:15 07/01/24 05:07 Triglycerides Level 1137 mg/dL (< 150) H 606 mg/dL (< 150) H Urinalysis Test 06/29/24 18:10 Urine Color Light-yellow (Yellow) Urine Clarity Clear (Clear) Urine pH 5.0 (5.0-9.0) Urine Specific [place] 1.038 (1.001-1.035) Urine Protein Negative (Negative) Urine Ketones 4+ (Negative) H Urine Blood Negative /uL (Negative) Urine Nitrite Negative (Negative) Urine Bilirubin Negative (Negative) Urine Urobilinogen Normal mg/dL (Negative) Urine Leukocyte Esterase Negative /uL (Negative) Urine RBC <1 /hpf (0 - 3) Urine WBC <1 /hpf (0 - 3) Urine Squamous Epithelial Cells None seen /hpf (<5) Urine Bacteria None seen /hpf (None Seen) Urine Glucose 4+ mg/dL (Normal) H Blood Gas Results Test 06/30/24 21:57 Arterial Blood pH 7.404 (7.350-7.450) FiO2 % 21.0 Labs and/or images reviewed: Labs reviewed by me, Image(s) reviewed by me Assessment/Plan Assessment/Plan Starvation ketosis Possible DKA Insulin-dependent diabetes Hypertriglyceridemia, can not rule out familial hyperlipidemia Hypertriglyceridemia induced pancreatitis High anion gap metabolic acidosis, resolved Lactic acidosis, resolved Hypovolemic hypernatremia Started on insulin drip, we will bridge today gap close x2 Triglyceride less than 1000 Insulin Lantus 10 units now, 20 units nightly after Dropped down insulin drip rate to 0, at the same time titrate down D5 water IV hydration Keep potassium 4 Pain management Diet advanced as tolerated declared DVT prophylaxis Lovenox Plan discussed with: Patient My Orders Orders - SYLVESTER SMYTH MD Procedure Category Date Status Time Insulin Lantus PHA 07/01/24 In Process (Glargine) (Lantus) 22:00 Clear Liq Diet DIET 07/01/24 Transmitted Lunch D5w/Sod Chl 0.45% PHA 07/01/24 In Process (D5w 1/2ns) 14:00 Date of Service: Jul 01, 2024 Billing Provider: SYLVESTER SMYTH MD Common Visit Codes: [id number] INP/OBS CARE(HIGH), [id number] CARE 30-74 MIN SYLVESTER SMYTH MD Jul 01, 2024 14:42
[2024-07-01] MEDS: ACCU-CHEK COMFORT CURVE STRIP VI SCH (15:00)
[2024-07-01 18:03] LABS: Chloride 107 mmol/L (98-107); Potassium 3.4 mmol/L (3.5-5.1); Sodium 134 mmol/L (136-145)
[2024-07-01 18:04] LABS: Anion Gap 6 (5-15); Carbon Dioxide 21 mmol/L (20-31)
[2024-07-01 18:09] LABS: Glucose 252 mg/dL (74-106)
[2024-07-01 18:10] LABS: BUN/Creatinine Ratio 6.8 (10.0-20.0); Blood Urea Nitrogen < 5 mg/dL (9-23)
--- NOTE | 2024-07-01 19:23 | DVHPN2 ---
Progress Note - Dictate Date Seen: Jul 01, 2024 Has the PT tested + for MRSA If YES, has PT been informed?: No Medical Necessity Reason Pt with a Central, PICC or Fol: No Subjective Patient seen and examined at bedside. Breathing comfortably on room air. Overnight events reviewed. HPI: A 39-year-old man with PMHx of fak-fjjonxm-ugkixpbxw diabetes mellitus who presented to the ED on 06/29/24 with c/o acute epigastric pain which started AM of presentation before breakfast. He had associated sx of nausea, vomiting. Pain was initially epigastric, then diffuse left abdominal pain; constant 10/10, no aggravating or alleviating factors. Pt went to urgent care,advised to go to ED due to symptoms and blood sugar of 48. He was admitted for DKA and pancreatitis, found to have hypertriglyceridemia. Review of Systems: 14-point review of systems negative unless otherwise noted above. Past Medical History: Fzr-vnvyzsf-gfgdmuicv diabetes mellitus Past Surgical History: Appendectomy Medications: Reviewed. Allergies: No known drug allergies. Family History: Diabetes mellitus. Social History: Nonsmoker. Alcohol: 10 beers every week No illicit drug use. vital signs Vital Sign Date Time Temp Pulse Resp B/P (MAP) Pulse Ox O2 Delivery O2 Flow Rate FiO2 07/01/24 18:55 99.8 07/01/24 18:00 109 07/01/24 18:00 28 103/75 (84) 95 07/01/24 08:00 Room Air* 0 21 Total Intake and Output 06/30/24 06/30/24 07/01/24 15:00 23:00 07:00 Intake Total 1012 ml 3143.5 ml 1809.0 ml Output Total 250 ml 1125 ml 1330 ml Balance 762 ml 2018.5 ml 479.0 ml medications Current Medications Medications Dose Ordered Sig/Hsay Route Start Time Stop Time Status Last Admin Dose Admin Ondansetron HCl 4 mg Q4HP PRN IV 06/29/24 20:30 06/30/24 11:09 4 MG Acetaminophen 650 mg Q6HP PRN PO 06/29/24 20:30 07/01/24 17:03 650 MG Morphine Sulfate 2 mg Q4HPRN PRN IV 06/29/24 20:30 06/30/24 11:10 2 MG Nitroglycerin 0.4 mg Q5MINP PRN SL 06/29/24 20:30 Morphine Sulfate 2 mg Q30M PRN IV 06/29/24 20:30 Insulin Human (Reg)/Sodium Chloride 100 ml @ 0.5 mls/hr Q24H IV 06/29/24 22:15 07/01/24 00:30 2 MLS/HR Dextrose 50 ml UD PRN IV 06/29/24 22:15 Ketorolac Tromethamine 15 mg Q6HR IV 06/30/24 20:00 07/05/24 19:59 07/01/24 17:02 15 MG Insulin Glargine 20 units HS SC 07/01/24 22:00 Diagnostic Test (Pha) 1 strip Q2HR 07/01/24 15:00 07/01/24 22:00 07/01/24 18:55 1 STRIP Diagnostic Test (Pha) 1 strip Q6HR 07/02/24 00:00 Potassium Chloride 100 ml @ 50 mls/hr Q2H IV 07/01/24 18:45 07/01/24 22:44 07/01/24 18:56 50 MLS/HR objective Gen.: Patient lying in bed in no apparent distress. Breathing on room air. Head: Normocephalic, atraumatic. Eyes: EOMI/PERRLA. Ears: Normal hearing. Normal anatomy. Neck/trachea: Trachea midline, supple. Nose: Normal external anatomy. Mouth: Moist mucous membranes. Chest: Decreased air entry bilaterally. No wheezing or rhonchi. Cardiovascular: Positive S1, positive S2. Regular rate and rhythm. Abdomen: Positive bowel sounds in all 4 quadrants. Soft, non-tender, non- distended. : Deferred. Rectal: Deferred. Skin: Warm, dry. Intact. Extremities: 2+ radial pulses bilaterally. No lower extremity edema. Neuro: Awake, alert, oriented x3. No gross motor or sensory deficits. Cranial nerves II through XII intact. Gait not assessed. laboratory and microbiology Laboratory Tests 07/01/24 17:48 07/01/24 05:07 Test 07/01/24 17:48 Range/Units Serum Glucose 252 H 74-106 mg/dL Assessment/Plan Impression: Starvation ketosis Possible DKA Insulin-dependent diabetes Hypertriglyceridemia Hypertriglyceridemia induced pancreatitis High anion gap metabolic acidosis, resolved Lactic acidosis, resolved Hypovolemic hypernatremia Plan: Supplemental O2 PRN Titrate to keep O2 sats above 92%. IV fluid hydration with D5-half NS at 200 ml/hr. Monitor triglycerides d/t hypertriglyceridemia Accu-Cheks, ISS. Potassium supplementation Monitor renal function Monitor electrolytes. Supplement as necessary. Monitor ins and outs. Pain control Avoid oversedation Advance diet as tolerated DVT prophylaxis w/ Lovenox Prognosis: Poor given patient's multiple co-morbidities. Rest of plan per hospitalist and other consultants. Thank you Dr. Miles Dejesus for allowing me to participate in this patient's care. Further recommendations will depend on the patient's clinical course. Please do not hesitate to contact me if you have any questions or concerns. This medical document was created using an electronic medical record system with [employer] dictation system. Although these documentations are being carefully reviewed, there may still be some phonetic and typographical changes. The errors are purely typographical, due to imperfection on the software program, and do not reflect any compromise in the patient's medical care. Plan discussed with: Patient, Other (TRINI Grace) PARVEZ HUGO MD Jul 01, 2024 19:23
[2024-07-01] MEDS: INSULIN LANTUS (GLARGINE) 1 /0.01ml (100units/ml) SC SCH (21:18)
[2024-07-02] VITALS (20 sets, daily range): BP systolic 104–118; BP diastolic 65–88; PULSE 86–113; RESP 17–34; TEMP 98.5–99.6; O2SAT 94–97
[2024-07-02] MEDS: ACCU-CHEK COMFORT CURVE STRIP VI SCH (00:34)
[2024-07-02 00:37] LABS: Chloride 108 mmol/L (98-107); Potassium 3.5 mmol/L (3.5-5.1); Sodium 135 mmol/L (136-145)
[2024-07-02 00:38] LABS: Anion Gap 7 (5-15); Calcium 8.7 mg/dL (8.7-10.4); Carbon Dioxide 20 mmol/L (20-31)
[2024-07-02 00:43] LABS: Glucose 237 mg/dL (74-106)
[2024-07-02 00:44] LABS: BUN/Creatinine Ratio 7.6 (10.0-20.0); Blood Urea Nitrogen < 5 mg/dL (9-23)
[2024-07-02 06:05] LABS: Anion Gap 7 (5-15); Carbon Dioxide 20 mmol/L (20-31); Chloride 109 mmol/L (98-107); Potassium 3.3 mmol/L (3.5-5.1); Sodium 136 mmol/L (136-145)
[2024-07-02 06:07] LABS: Calcium 8.9 mg/dL (8.7-10.4)
[2024-07-02 06:11] LABS: Glucose 186 mg/dL (74-106)
[2024-07-02 06:18] LABS: BUN/Creatinine Ratio 7.9 (10.0-20.0); Blood Urea Nitrogen < 5 mg/dL (9-23)
[2024-07-02 06:29] LABS: Basophils # (auto) 0 10 ^3/uL (0-0.2); Basophils % (auto) 0.2 % (0.0-2.0); Eosinophils # (auto) 0 10 ^3/uL (0-0.8); Eosinophils % (auto) 0.7 % (0.0-7.0); Hematocrit 34.8 % (41.0-53.0); Hemoglobin 12.1 g/dL (13.5-17.5); Lymphocytes # (auto) 0.9 10 ^3/uL (0.4-5.4); Lymphocytes % (auto) 18.8 % (10.0-50.0); Mean Corpuscular Hemoglobin 31.7 pg (28.0-32.0); Mean Corpuscular Hgb Conc. 34.7 g/dL (32.0-36.0); Mean Corpuscular Volume 91.2 fL (80.0-100.0); Monocytes # (auto) 0.6 10 ^3/uL (0-1.3); Monocytes % (auto) 11.9 % (0.0-12.0); Neutrophils # (auto) 3.3 10 ^3/uL (1.6-8.6); Neutrophils % (auto) 68.4 % (37.0-80.0); Nucleated Red Blood Cells % 0.1 %; Platelet Count (auto) 127 10^3/uL (140-450); Red Blood Cells 3.82 10^6/uL (4.5-5.90); Red Cell Distribution Width 13.7 % (11.8-14.3); White Blood Cell 4.8 10^3/uL (4.4-10.8)
[2024-07-02] MEDS ORDERED: LORazepam 2MG/ML-1ML VIAL IV PRN (09:15)
[2024-07-02 09:27] LABS: Magnesium 1.8 mg/dL (1.6-2.6)
[2024-07-02 09:29] LABS: Phosphorus 1.8 mg/dL (2.4-5.1)
[2024-07-02] MEDS: ATORVASTATIN 20 MG TAB PO ONE (09:30)
[2024-07-02] MEDS: LACTATED RINGER'S 1,000 ML IV ONE (09:30)
[2024-07-02] MEDS: POTASSIUM CHLORIDE 60 MEQ, LIDOCAINE 1% (LOCAL ANESTH.) 6 ML in SODIUM CHL 0.9% 500 ML IV ONE (09:30)
[2024-07-02] MEDS: INSULIN LANTUS (GLARGINE) 1 /0.01ml (100units/ml) SC ONE (16:11)
[2024-07-02] MEDS: POTASSIUM PHOSPHATE 22 MEQ in SODIUM CHL 0.9% 100 ML IV ONE (16:15)
[2024-07-02 16:35] LABS: Chloride 106 mmol/L (98-107); Potassium 3.9 mmol/L (3.5-5.1); Sodium 136 mmol/L (136-145)
[2024-07-02 16:36] LABS: Anion Gap 6 (5-15); Carbon Dioxide 24 mmol/L (20-31)
[2024-07-02 16:37] LABS: Calcium 9.3 mg/dL (8.7-10.4)
[2024-07-02 16:41] LABS: Glucose 260 mg/dL (74-106)
[2024-07-02 16:43] LABS: BUN/Creatinine Ratio 6.8 (10.0-20.0); Blood Urea Nitrogen < 5 mg/dL (9-23)
--- NOTE | 2024-07-02 16:52 | DVHPNRES ---
Progress Note Date Seen: Jul 02, 2024 Resident Creating Document: DENIA NAVA RESIDENT Has the PT tested + for MRSA If YES, has PT been informed?: No Medical Necessity Reason Pt with a Central, PICC or Fol: No Subjective Review of Systems Saw the patient at the bedside, patient is much improved since admission, not having abdominal pain, nausea vomiting or any other concerning symptoms. Patient is tolerating oral full liquid diet, advanced the diet, patient has been taught regarding new onset diabetes mellitus and subcutaneous insulin administration by clinical informatics educator. Patient reports: No new complaints, Feels better Changes from previous H/P or p: No Changes Review of Systems: HEENT:Normal, CVS:Normal, RESPIRATORY:Normal, GI:Abnormal (Tolerating diet well, oral hydration to continue), :Normal, MSK:Normal, NEURO:Normal Objective vital signs Vital Sign Date Time Temp Pulse Resp B/P (MAP) Pulse Ox O2 Delivery O2 Flow Rate FiO2 07/02/24 16:00 99.6 106 31 118/88 (98) 94 99.6 07/02/24 08:00 Room Air* 0 21 Total Intake and Output 07/01/24 07/01/24 07/02/24 15:00 23:00 07:00 Intake Total 1417.5 ml 850 ml 80 ml Output Total 1400 ml 1050 ml Balance 1417.5 ml -550 ml -970 ml medications Current Medications Medications Dose Ordered Sig/Shay Route Start Time Stop Time Status Last Admin Dose Admin Ondansetron HCl 4 mg Q4HP PRN IV 06/29/24 20:30 06/30/24 11:09 4 MG Acetaminophen 650 mg Q6HP PRN PO 06/29/24 20:30 07/01/24 17:03 650 MG Morphine Sulfate 2 mg Q4HPRN PRN IV 06/29/24 20:30 06/30/24 11:10 2 MG Nitroglycerin 0.4 mg Q5MINP PRN SL 06/29/24 20:30 Dextrose 50 ml UD PRN IV 06/29/24 22:15 Ketorolac Tromethamine 15 mg Q6HR IV 06/30/24 20:00 07/05/24 19:59 07/02/24 11:31 15 MG Diagnostic Test (Pha) 1 strip Q6HR 07/02/24 00:00 07/02/24 11:18 1 STRIP Atorvastatin Calcium 80 mg HS PO 07/03/24 22:00 Lorazepam 1 mg Q2HPRN PRN IV 07/02/24 09:15 Insulin Glargine 30 units HS SC 07/02/24 22:00 UNV Examination: GENERAL:Normal, HEENT:Normal, NECK:Normal, LUNGS:Normal, CVS:Normal, ABDOMEN:Normal, MSK:Normal, SKIN:Normal, NEURO:Normal, :Normal laboratory and microbiology Laboratory Tests 07/02/24 05:20 Test 07/02/24 16:04 Range/Units Serum Glucose Pending Microbiology Date/Time Source Procedure Growth Status 06/30/24 10:41 Nose MRSA Screen - Final Complete Labs and/or images reviewed: Labs reviewed by me, Image(s) reviewed by me Problem List/Assessment/Plan Problem List/Assessment/Plan Hospital course: David Childs, a 39-year-old male with a history of appendectomy and a family history of diabetes, presented to the ED with acute epigastric pain that began before breakfast and later became diffuse left abdominal pain, rated 10/10. His symptoms included nausea and vomiting, with no relief from any measures. He was referred to the ED from urgent care due to his symptoms and a glucose reading of 480s. He drinks 4-10 beers every weekend, with his last drink being yesterday, but denies smoking and drug abuse. He lives with a friend, did not follow up with the PCP and does not take any medications. He denies any similar previous episode and has no fever, chills, diarrhea, or constipation. Status post IV insulin patient's gap closed, tolerating oral diet, abdominal pain subsided, electrolyte disturbances improved. Patient is appropriate for step-down due telemetry unit. # Acute pancreatitis due to Hypertriglyceridemia: Status post IV fluid, pain control and TG controlled by IV insulin symptomatically improved. no noted complications so far. abdominal pain subsided. Continue incentive spirometry. # acute hyper triglyceridemia with a baseline of undiscovered familial high TG: TG came down between 150 to 500 moderate triglyceridemia, we will start the patient on dietary restriction, started on high-intensity statin. At discharge we will start Oral [place] fatty acid and robust diabetes mellitus confirmed # SIRS reaction , resolving patient is still tachypneic/ tachycardic. IV fluid. Check for VBG. Further management as per interpretation. lactic acidosis resolved. # hypovolemic hyponatremia: patient improved, normal sodium level. # mild hypokalemia, 3.3 this morning, supplements provided: Target is to keep around 4 potassium: Repeat BMP tomorrow. # DKA vs starvation ketosis, resolved: Status post Appropriate bridging between subcutaneous on IV insulin. anion Gap closed, patient is tolerating oral diet. # Uncontrolled diabetes mellitus, newly discovered: Patient in no any previous history, likely type 2 versus type 1, HbA1c 12, basal bolus SSI to keep the blood glucose between 140-180. completed diabetic education, increased basal insulin to 30. Patient will be discharged home with insulin and needs outpatient close follow up with 4 months interval HbA1c. # Dyslipidemia: daily atorvastatin 80 mg to follow for now # anion gap metabolic acidosis : Gap closed. Likely compensating with tachypnea , check ABG, look for respiratory failure/ respiratory fatigue. # severe hyperglycemia bc newly diagnosed T2DM versus type 1 DM: Continue insulin now in titration # hypophosphatemia: Normal calcemia, phosphate replenished. # Acute alcohol abuse: With binge drinking episodes. Up to 6-10 beers in the weekends. Patient is not clear about alcohol history we will have high suspicion of alcohol withdrawal and we will implement CIWA protocol. # likely fatty liver disease: Noted hepatic steatosis in the CT abdomen. follow ultrasound liver and further lifestyle modification and counseling regarding fatty liver and risk of GIPSON/MASH. Strictly avoid alcohol. # Diet: tolerated full liquid diet, clear liquid diet was changed this morning. Started on CC diet with low-cholesterol. PCP: No established PCP, at discharge we will follow up with discharge Clinic. Needs to establish care. Barriers to discharge: Tomorrow we will consider home Discharge, with follow up with the primary care physician, discharge Clinic , new medication along with insulin. Appreciate sw input for discharge disposition. Discussed with Dr. Elkins Code status: Full code. Care discussion needed 41 minutes of discussion. Plan discussed with the patient with the presence of advertising display rotator. Appropriate to downgrade to telemetry floor. Plan discussed with: Patient, Other (Primary team, RN) My Orders My Orders Orders - DENIA NAVA RESIDENT Procedure Category Date Status Time Atorvastatin (Lipitor) PHA 07/03/24 In Process 22:00 Full Liq Diet DIET 07/02/24 Transmitted Breakfast Lorazepam 2mg/Ml Inj PHA 07/02/24 In Process (Ativan Inj) 09:15 Etoh Withdrawal CHANDU 07/02/24 In Process Assessment 09:09 Etoh Withdrawal CHANDU 07/02/24 In Process Assessment 09:09 Transfer Orders XFER 07/02/24 Transmitted 09:11 *Rn Lead Manufacturing Engineering Tech REFER 07/02/24 Transmitted Referral 09:12 * Detective Bureau Chief CONS 07/02/24 Transmitted Consult Potassium Phosphate PHA 07/02/24 In Process 14:15 Insulin Lantus PHA 07/02/24 Logged (Glargine) (Lantus) 22:00 Labs/Diagnostic Data Laboratory Tests Test 07/02/24 16:04 07/02/24 11:14 07/02/24 06:00 07/02/24 05:20 Range/Units Sodium Level 136 136 136-145 mmol/L Potassium Level 3.9 3.3 L 3.5-5.1 mmol/L Chloride Level 106 109 H 98-107 mmol/L Carbon Dioxide Level 24 20 20-31 mmol/L Anion Gap 6 7 5-15 Blood Urea Nitrogen < 5 L < 5 L 9-23 mg/dL Creatinine 0.74 0.63 L 0.700-1.30 mg/dL Glomerular Filtration Rate Calc 117 123 >90 mL/min BUN/Creatinine Ratio 6.8 L 7.9 L 10.0-20.0 Serum Glucose 260 H 186 H 74-106 mg/dL Calcium Level 9.3 8.9 8.7-10.4 mg/dL POC Glucose 344 H 176 H 70-106 mg/dl White Blood Count 4.8 4.4-10.8 10^3/uL Red Blood Count 3.82 L 4.5-5.90 10^6/uL Hemoglobin 12.1 L 13.5-17.5 g/dL Hematocrit 34.8 L 41.0-53.0 % Mean Corpuscular Volume 91.2 80.0-100.0 fL Mean Corpuscular Hemoglobin 31.7 28.0-32.0 pg Mean Corpuscular Hemoglobin Concent 34.7 32.0-36.0 g/dL Red Cell Distribution Width 13.7 11.8-14.3 % Platelet Count 127 L 140-450 10^3/uL Mean Platelet Volume 8.9 6.9-10.8 fL Neutrophils (%) (Auto) 68.4 37.0-80.0 % Lymphocytes (%) (Auto) 18.8 10.0-50.0 % Monocytes (%) (Auto) 11.9 0.0-12.0 % Eosinophils (%) (Auto) 0.7 0.0-7.0 % Basophils (%) (Auto) 0.2 0.0-2.0 % Neutrophils # (Auto) 3.3 1.6-8.6 10 ^3/uL Lymphocytes # (Auto) 0.9 0.4-5.4 10 ^3/uL Monocytes # (Auto) 0.6 0-1.3 10 ^3/uL Eosinophils # (Auto) 0 0-0.8 10 ^3/uL Basophils # (Auto) 0 0-0.2 10 ^3/uL Nucleated Red Blood Cells 0.1 % Phosphorus Level 1.8 L 2.4-5.1 mg/dL Magnesium Level 1.8 1.6-2.6 mg/dL Lactate Dehydrogenase 169 120-246 U/L Triglycerides Level 293 H < 150 mg/dL Test 07/02/24 00:36 07/02/24 00:18 07/01/24 22:51 07/01/24 21:02 Range/Units POC Glucose 223 H 243 H 214 H 70-106 mg/dl Sodium Level 135 L 136-145 mmol/L Potassium Level 3.5 3.5-5.1 mmol/L Chloride Level 108 H 98-107 mmol/L Carbon Dioxide Level 20 20-31 mmol/L Anion Gap 7 5-15 Blood Urea Nitrogen < 5 L 9-23 mg/dL Creatinine 0.66 L 0.700-1.30 mg/dL Glomerular Filtration Rate Calc 122 >90 mL/min BUN/Creatinine Ratio 7.6 L 10.0-20.0 Serum Glucose 237 H 74-106 mg/dL Calcium Level 8.7 8.7-10.4 mg/dL Test 07/01/24 17:53 07/01/24 17:48 07/01/24 17:08 Range/Units POC Glucose 236 H 274 H 70-106 mg/dl Sodium Level 134 L 136-145 mmol/L Potassium Level 3.4 L 3.5-5.1 mmol/L Chloride Level 107 98-107 mmol/L Carbon Dioxide Level 21 20-31 mmol/L Anion Gap 6 5-15 Blood Urea Nitrogen < 5 L 9-23 mg/dL Creatinine 0.74 0.700-1.30 mg/dL Glomerular Filtration Rate Calc 117 >90 mL/min BUN/Creatinine Ratio 6.8 L 10.0-20.0 Serum Glucose 252 H 74-106 mg/dL Calcium Level 9.0 8.7-10.4 mg/dL Microbiology Date/Time Source Procedure Growth Status 06/30/24 10:41 Nose MRSA Screen - Final Complete Date of Service: Jul 02, 2024 Billing Provider: SYLVESTER ELKINS MD Common Visit Codes: [id number] INP/OBS CARE(HIGH), [id number] CARE 30-74 MIN Coding Comment Comment I saw and evaluated the patient. I reviewed the residents note and agree with findings and plan as documented in the residents note. Total critical care time spent on this patient more than 30 minutes including evaluation, chart review, formulating plan and communication with team, excluding any procedures Starvation ketosis Possible DKA Insulin-dependent diabetes Hypertriglyceridemia, can not rule out familial hyperlipidemia Hypertriglyceridemia induced pancreatitis, improving High anion gap metabolic acidosis, resolved Lactic acidosis, resolved Hypovolemic hypernatremia s/p IV insulin, bridge to lantus 30 units gap close x2 Triglyceride less than 1000 start statin, fibrate Keep potassium 4 Pain management downgrade to tele Diet advanced as tolerated DVT prophylaxis DENIA Luther RESIDENT Jul 02, 2024 16:52 SYLVESTER ELKINS MD Jul 02, 2024 19:18
[2024-07-02 18:24] LABS: Chloride 108 mmol/L (98-107); Potassium 3.7 mmol/L (3.5-5.1); Sodium 136 mmol/L (136-145)
[2024-07-02 18:25] LABS: Anion Gap 4 (5-15); Calcium 9.1 mg/dL (8.7-10.4); Carbon Dioxide 24 mmol/L (20-31)
[2024-07-02 18:30] LABS: BUN/Creatinine Ratio 8.1 (10.0-20.0); Blood Urea Nitrogen 6 mg/dL (9-23); Glucose 243 mg/dL (74-106)
--- NOTE | 2024-07-02 18:33 | DVHPN2 ---
Progress Note - Dictate Date Seen: Jul 02, 2024 Has the PT tested + for MRSA If YES, has PT been informed?: No Medical Necessity Reason Pt with a Central, PICC or Fol: No Subjective Patient seen and examined at bedside. Breathing comfortably on room air. Overnight events reviewed. HPI: A 39-year-old man with PMHx of [id number] diabetes mellitus who presented to the ED on 06/29/24 with c/o acute epigastric pain which started AM of presentation before breakfast. He had associated sx of nausea, vomiting. Pain was initially epigastric, then diffuse left abdominal pain; constant 10/10, no aggravating or alleviating factors. Pt went to urgent care,advised to go to ED due to symptoms and blood sugar of 48. He was admitted for DKA and pancreatitis, found to have hypertriglyceridemia. Review of Systems: 14-point review of systems negative unless otherwise noted above. Past Medical History: Kee-ryvgmks-bwwvjxklp diabetes mellitus Past Surgical History: Appendectomy Medications: Reviewed. Allergies: No known drug allergies. Family History: Diabetes mellitus. Social History: Nonsmoker. Alcohol: 10 beers every week No illicit drug use. vital signs Vital Sign Date Time Temp Pulse Resp B/P (MAP) Pulse Ox O2 Delivery O2 Flow Rate FiO2 07/02/24 16:00 99.6 106 31 118/88 (98) 94 99.6 07/02/24 08:00 Room Air* 0 21 Total Intake and Output 07/01/24 07/01/24 07/02/24 15:00 23:00 07:00 Intake Total 1417.5 ml 850 ml 80 ml Output Total 1400 ml 1050 ml Balance 1417.5 ml -550 ml -970 ml medications Current Medications Medications Dose Ordered Sig/Shay Route Start Time Stop Time Status Last Admin Dose Admin Ondansetron HCl 4 mg Q4HP PRN IV 06/29/24 20:30 06/30/24 11:09 4 MG Acetaminophen 650 mg Q6HP PRN PO 06/29/24 20:30 07/01/24 17:03 650 MG Morphine Sulfate 2 mg Q4HPRN PRN IV 06/29/24 20:30 06/30/24 11:10 2 MG Nitroglycerin 0.4 mg Q5MINP PRN SL 06/29/24 20:30 Dextrose 50 ml UD PRN IV 06/29/24 22:15 Ketorolac Tromethamine 15 mg Q6HR IV 06/30/24 20:00 07/05/24 19:59 07/02/24 17:47 15 MG Diagnostic Test (Pha) 1 strip Q6HR 07/02/24 00:00 07/02/24 18:14 1 STRIP Atorvastatin Calcium 80 mg HS PO 07/03/24 22:00 Lorazepam 1 mg Q2HPRN PRN IV 07/02/24 09:15 Insulin Glargine 30 units HS SC 07/02/24 22:00 objective Gen.: Patient lying in bed in no apparent distress. Breathing on room air. Head: Normocephalic, atraumatic. Eyes: EOMI/PERRLA. Ears: Normal hearing. Normal anatomy. Neck/trachea: Trachea midline, supple. Nose: Normal external anatomy. Mouth: Moist mucous membranes. Chest: Decreased air entry bilaterally. No wheezing or rhonchi. Cardiovascular: Positive S1, positive S2. Regular rate and rhythm. Abdomen: Positive bowel sounds in all 4 quadrants. Soft, non-tender, non- distended. : Deferred. Rectal: Deferred. Skin: Warm, dry. Intact. Extremities: 2+ radial pulses bilaterally. No lower extremity edema. Neuro: Awake, alert, oriented x3. No gross motor or sensory deficits. Cranial nerves II through XII intact. Gait not assessed. laboratory and microbiology Laboratory Tests 07/02/24 18:09 07/02/24 05:20 Test 07/02/24 18:09 Range/Units Serum Glucose 243 H 74-106 mg/dL Assessment/Plan Impression: Starvation ketosis Possible DKA Insulin-dependent diabetes Hypertriglyceridemia Hypertriglyceridemia induced pancreatitis High anion gap metabolic acidosis, resolved Lactic acidosis, resolved Hypovolemic hypernatremia Events: Breathing on room air No respiratory distress. Patient is stable from the pulmonary standpoint for downgrade to telemetry. Off insulin drip. Full liquid diet Potassium supplementation Monitor renal function Monitor electrolytes, supplement as necessary Labs and imaging reviewed. Rest of plan as noted below. Plan: Supplemental O2 PRN Titrate to keep O2 sats above 92%. IV fluid hydration with D5-half NS at 200 ml/hr. Monitor triglycerides d/t hypertriglyceridemia Accu-Cheks, ISS. Potassium supplementation Monitor renal function Monitor electrolytes. Supplement as necessary. Monitor ins and outs. Pain control Avoid oversedation Advance diet as tolerated DVT prophylaxis w/ Lovenox Prognosis: Poor given patient's multiple co-morbidities. Rest of plan per hospitalist and other consultants. Thank you Dr. Miles Dejesus for allowing me to participate in this patient's care. Further recommendations will depend on the patient's clinical course. Please do not hesitate to contact me if you have any questions or concerns. This medical document was created using an electronic medical record system with [employer] dictation system. Although these documentations are being carefully reviewed, there may still be some phonetic and typographical changes. The errors are purely typographical, due to imperfection on the software program, and do not reflect any compromise in the patient's medical care. Plan discussed with: Patient, Other (TRINI Perez) PARVEZ HUGO MD Jul 02, 2024 18:32
[2024-07-02] MEDS: ACCU-CHEK COMFORT CURVE STRIP VI ONE (22:15)
[2024-07-02] MEDS ORDERED: DEXTROSE (50%) 50ML SYRG IV PRN (22:15)
[2024-07-02] MEDS: INSULIN LANTUS (GLARGINE) 1 /0.01ml (100units/ml) SC SCH (22:15)
[2024-07-02] MEDS: InsuLIN REG 1unit/0.01ml Soln (100units/ml) SC SCH (22:15)
[2024-07-02] MEDS: DEXTROSE (50%) 50ML SYRG IV ONE (22:17)
[2024-07-02] MEDS: InsuLIN REG 1unit/0.01ml Soln (100units/ml) SC ONE (23:58)
[2024-07-03 01:00] VITALS: BP 107/68; PULSE 101; RESP 20; TEMP 99.3; O2SAT 93
[2024-07-03 05:00] VITALS: BP 111/73; PULSE 88; RESP 18; TEMP 98.7; O2SAT 96
[2024-07-03] MEDS: ACCU-CHEK COMFORT CURVE STRIP VI SCH (06:20)
[2024-07-03 06:25] LABS: Basophils # (auto) 0 10 ^3/uL (0-0.2); Basophils % (auto) 0.2 % (0.0-2.0); Eosinophils # (auto) 0.1 10 ^3/uL (0-0.8); Eosinophils % (auto) 1.3 % (0.0-7.0); Hematocrit 33.4 % (41.0-53.0); Hemoglobin 11.8 g/dL (13.5-17.5); Lymphocytes # (auto) 0.9 10 ^3/uL (0.4-5.4); Lymphocytes % (auto) 21.7 % (10.0-50.0); Mean Corpuscular Hemoglobin 31.7 pg (28.0-32.0); Mean Corpuscular Hgb Conc. 35.3 g/dL (32.0-36.0); Mean Corpuscular Volume 89.8 fL (80.0-100.0); Monocytes # (auto) 0.6 10 ^3/uL (0-1.3); Monocytes % (auto) 13.1 % (0.0-12.0); Neutrophils # (auto) 2.7 10 ^3/uL (1.6-8.6); Neutrophils % (auto) 63.7 % (37.0-80.0); Platelet Count (auto) 145 10^3/uL (140-450); Red Blood Cells 3.72 10^6/uL (4.5-5.90); Red Cell Distribution Width 13.4 % (11.8-14.3); White Blood Cell 4.3 10^3/uL (4.4-10.8)
[2024-07-03 06:43] LABS: Alanine Aminotransferase 13 U/L (7-40); Albumin 3.4 g/dL (3.2-4.8); Alkaline Phosphatase 61 U/L (46-116); Anion Gap 7 (5-15); Aspartate Aminotransferase 8 U/L (13-40); BUN/Creatinine Ratio 11.1 (10.0-20.0); Blood Urea Nitrogen 8 mg/dL (9-23); Calcium 9.1 mg/dL (8.7-10.4); Carbon Dioxide 24 mmol/L (20-31); Chloride 107 mmol/L (98-107); Potassium 3.4 mmol/L (3.5-5.1); Sodium 138 mmol/L (136-145); Triglycerides 255 mg/dL (< 150)
[2024-07-03 06:44] LABS: Bilirubin, Total 0.6 mg/dL (0.2-1.0); Total Protein 5.9 g/dL (5.7-8.2)
[2024-07-03 06:45] LABS: Glucose 140 mg/dL (74-106)
[2024-07-03 08:00] VITALS: PULSE 87; RESP 17; O2SAT 98
[2024-07-03 09:00] VITALS: BP 113/70; PULSE 87; RESP 17; TEMP 99.2; O2SAT 98
[2024-07-03] MEDS ORDERED: LANCKIT12 XX (12:58)
[2024-07-03] MEDS ORDERED: INSLANTI SC ×2 (12:58→16:42)
[2024-07-03] MEDS ORDERED: ATOR20TA50 PO (12:58)
[2024-07-03] MEDS ORDERED: BLOO1KIT XX (12:59)
[2024-07-03 13:00] VITALS: BP 125/80; PULSE 92; RESP 17; TEMP 98.7; O2SAT 95
[2024-07-03] MEDS ORDERED: POTASSIUM EFFERVESENT TAB 25 MEQ GT ONE (13:00)
--- NOTE | 2024-07-03 13:09 | DVHDSRES ---
Discharge Summary Date of Admission Resident Creating Document: DENIA NAVA RESIDENT Jun 29, 2024 at 20:20 Date of Discharge: Jul 03, 2024 Admitting Diagnosis Abdominal pain, pancreatitis Labs/Diagnostic Data: Laboratory Results Test 07/03/24 12:12 07/03/24 05:11 07/02/24 05:20 06/30/24 21:57 POC Glucose 226 mg/dl (70-106) White Blood Count 4.3 10^3/uL (4.4-10.8) Red Blood Count 3.72 10^6/uL (4.5-5.90) Hemoglobin 11.8 g/dL (13.5-17.5) Hematocrit 33.4 % (41.0-53.0) Mean Corpuscular Volume 89.8 fL (80.0-100.0) Mean Corpuscular Hemoglobin 31.7 pg (28.0-32.0) Mean Corpuscular Hemoglobin Concent 35.3 g/dL (32.0-36.0) Red Cell Distribution Width 13.4 % (11.8-14.3) Platelet Count 145 10^3/uL (140-450) Mean Platelet Volume 8.5 fL (6.9-10.8) Neutrophils (%) (Auto) 63.7 % (37.0-80.0) Lymphocytes (%) (Auto) 21.7 % (10.0-50.0) Monocytes (%) (Auto) 13.1 % (0.0-12.0) Eosinophils (%) (Auto) 1.3 % (0.0-7.0) Basophils (%) (Auto) 0.2 % (0.0-2.0) Neutrophils # (Auto) 2.7 10 ^3/uL (1.6-8.6) Lymphocytes # (Auto) 0.9 10 ^3/uL (0.4-5.4) Monocytes # (Auto) 0.6 10 ^3/uL (0-1.3) Eosinophils # (Auto) 0.1 10 ^3/uL (0-0.8) Basophils # (Auto) 0 10 ^3/uL (0-0.2) Nucleated Red Blood Cells 0.0 % Sodium Level 138 mmol/L (136-145) Potassium Level 3.4 mmol/L (3.5-5.1) Chloride Level 107 mmol/L (98-107) Carbon Dioxide Level 24 mmol/L (20-31) Anion Gap 7 (5-15) Blood Urea Nitrogen 8 mg/dL (9-23) Creatinine 0.72 mg/dL (0.700-1.30) Glomerular Filtration Rate Calc 118 mL/min (>90) BUN/Creatinine Ratio 11.1 (10.0-20.0) Serum Glucose 140 mg/dL (74-106) Calcium Level 9.1 mg/dL (8.7-10.4) Total Bilirubin 0.6 mg/dL (0.2-1.0) Aspartate Amino Transferase (AST) 8 U/L (13-40) Alanine Aminotransferase (ALT) 13 U/L (7-40) Alkaline Phosphatase 61 U/L (46-116) Total Protein 5.9 g/dL (5.7-8.2) Albumin 3.4 g/dL (3.2-4.8) Triglycerides Level 255 mg/dL (< 150) Phosphorus Level 1.8 mg/dL (2.4-5.1) Magnesium Level 1.8 mg/dL (1.6-2.6) Lactate Dehydrogenase 169 U/L (120-246) Blood Gas Specimen Type Arterial Blood Gas Sample Site Right radial Blood Gas Patient Temperature 37.0 Arterial Blood Date Drawn Arterial Blood pH 7.404 (7.350-7.450) Arterial Blood Partial Pressure CO2 31.2 mmHg (35.0-48.0) Arterial Blood Partial Pressure O2 76.6 mmHg (83.0-108.0) Arterial Blood HCO3 19.1 mmol/L (21.0-28.0) Arterial Blood Oxygen Saturation 96.0 % (94.0-98.0) Arterial Blood Base Excess -4.5 mmol/L (-2.0-3.0) Arterial Blood Oxyhemoglobin 94.4 % (94.0-98.0) Arterial Blood Carboxyhemoglobin 1.4 % (0.5-1.5) Arterial Blood Methemoglobin 0.3 % (0.0-1.5) Marco Test Yes Blood Gas Total Hemoglobin 13.70 g/dL (13.5-17.5) Blood Gas Modality Room air FiO2 % 21.0 Test 06/30/24 05:29 06/29/24 22:21 06/29/24 22:20 06/29/24 20:47 Platelet Estimate Adequate Anisocytosis (manual) Slight Free Thyroxine (T4) Calculated 1.09 ng/dL (0.89-1.76) Free Triiodothyronine (T3) pg/mL 1.74 pg/mL (2.3-4.2) Hemoglobin A1c 12.4 % A1C (<5.7) Serum Osmolality 300 mOsm/kg (278-298) Lactic Acid Level 1.3 mmol/L (0.4-2.0) Cholesterol Level 412 mg/dL (< 200) LDL Cholesterol 55 mg/dL (< 100) HDL Cholesterol 24 mg/dL (40-59) Vitamin B12 Level 585 pg/mL (211-911) Vitamin D 25-Hydroxy 4.7 ng/mL (30.0-100) Beta-Hydroxybutyric Acid > 4.500 mmol/L (< 0.4) Thyroid Stimulating Hormone (TSH) 0.29 uIU/mL (0.55-4.78) Blood Gas Liter Flow 0.00 Lipase 444 U/L (12-53) Plasma/Serum Blood Alcohol < 3.0 mg/dL (<10) Test 06/29/24 18:10 06/29/24 17:29 Urine Color Light-yellow (Yellow) Urine Clarity Clear (Clear) Urine pH 5.0 (5.0-9.0) Urine Specific [place] 1.038 (1.001-1.035) Urine Protein Negative (Negative) Urine Ketones 4+ (Negative) Urine Blood Negative /uL (Negative) Urine Nitrite Negative (Negative) Urine Bilirubin Negative (Negative) Urine Urobilinogen Normal mg/dL (Negative) Urine Leukocyte Esterase Negative /uL (Negative) Urine RBC <1 /hpf (0 - 3) Urine WBC <1 /hpf (0 - 3) Urine Squamous Epithelial Cells None seen /hpf (<5) Urine Bacteria None seen /hpf (None Seen) Urine Glucose 4+ mg/dL (Normal) Urine Opiates Screen Neg (NEGATIVE) Urine Fentanyl Screen Neg (NEGATIVE) Urine Barbiturates Screen Neg (NEGATIVE) Urine Phencyclidine Screen Neg (NEGATIVE) Urine Amphetamines Screen Neg (NEGATIVE) Urine Benzodiazepines Screen Neg (NEGATIVE) Urine Cocaine Screen Neg (NEGATIVE) Urine Cannabinoids Screen Neg (NEGATIVE) Troponin I High Sensitivity < 3 ng/L (</=54) Other Laboratory Tests 11/11/24 05:11 Brief Hx & Hospital Course: Hospital course: David Childs, a 39-year-old male with a history of appendectomy and a family history of diabetes, presented to the ED with acute epigastric pain that began before breakfast and later became diffuse left abdominal pain, rated 10/10. His symptoms included nausea and vomiting, with no relief from any measures. He was referred to the ED from urgent care due to his symptoms and a glucose reading of 480s. He drinks 4-10 beers every weekend, with his last drink being yesterday, but denies smoking and drug abuse. He lives with a friend, did not follow up with the PCP and does not take any medications. He denies any similar previous episode and has no fever, chills, diarrhea, or constipation. Status post IV insulin patient's gap closed, tolerating oral diet, abdominal pain subsided, electrolyte disturbances improved. Patient is appropriately tolerating diet and BG improved with lantus 30 IU daily and started on Atorvastatin 80 mg daily. Medical conditions treated in hospital: # Acute pancreatitis due to Hypertriglyceridemia # acute hyper triglyceridemia with a baseline of undiscovered familial high TG # SIRS reaction , resolved. # hypovolemic hyponatremia improved. # mild hypokalemia, 3.3 this morning, supplements provided # DKA vs starvation ketosis, resolved # Uncontrolled diabetes mellitus, newly discovered # Dyslipidemia on statin # anion gap metabolic acidosis # severe hyperglycemia bc newly diagnosed T2DM versus type 1 DM # hypophosphatemia, resolved. # Acute alcohol abuse # likely fatty liver disease Discussed with Dr. Elkins PCP: No established PCP, at discharge we will follow up with discharge Clinic. Needs to establish care. Code status: Full code. Care discussion needed 41 minutes of discussion. Plan discussed with the patient with the presence of device test engineer. Discharge planning needed total 45 minutes of discussion. Patient agreed to the plan. Consults/Reason for consult ICU for hypertryglyceredemia, for Insulin protocol. Operations or Procedures RUN DATE: 07/01/24 PAGE 1 RUN TIME: 1624 [facility] [address] [address] Svetlana Chavez M.D., Laboratory Complaint Investigations Officer - PATIENT: DAVID SMITH ACCT: [id number] LOC: [place] IN ICU U: [id number] AGE/SX: 39/M ROOM: 0263D RE06/29/[address]: DENIA NAVA RESIDENT : 1985 BED: A DIS: STATUS: ADM IN TLOC: - SPEC #: [id number] ASIA: 06/30/24 STATUS: COMP REQ #: [id number] RECD: 06/30/24 [facility] DR: DENIA NAVA SOURCE: NOSE ENTR: 06/30/[address] [facility] [address]: LIZETH BARKER MD SPDESC: SYLVESTER ELKINS MD [place] [id number] Ph: [phone] DIAGNOSTIC IMAGING Diagnostic Imaging Report : [id number] Signed PATIENT: DAVID SMITH ACCT: [id number] UNIT: [id number] : 1985 LOC: [place] IN ICU ROOM / BED: 0263D / A AGE / SEX: 39 / M ADM STATUS: ADM IN SERVICE 08 ORDERING PHYSICIAN: DENIA NAVA PROCEDURE(s): LIVUS - LIVER REASON: rule out stone. ORDER NUMBER(s): [id number], ACCESSION NUMBER(s): [id number] Procedure: US LIVER 07/01/2024 08:04 AM Indication: rule out stone.. Comparison: None Technique: Grayscale and color images of the right upper quadrant were obtained. FINDINGS: ASCITES: None. LIVER: Liver measures 16 cm craniocaudal. Liver parenchyma is diffusely echogenic. No focal lesion is identified. No intrahepatic ductal dilatation. Normal directional flow is seen in the portal vein. GALLBLADDER: No gallstones. No gallbladder wall edema or pericholecystic fluid. [employer]ographic Brothers's sign is negative. COMMON BILE DUCT: Not visualized. PANCREAS: Visualized portions are unremarkable. RIGHT KIDNEY: Normal in size, L1 0.2 cm in length without hydronephrosis. No focal lesions identified. AORTA, IVC: Visualized portions are unremarkable. OTHER: None. IMPRESSION: 1. No sonographic evidence for acute abnormality in the right upper quadrant. No cholelithiasis or right renal calculi are identified. 2. Hepatic steatosis. ATED BY: TOVA LAMAR MD DICTATED DATE/TIME: 07/01/24913 SIGNED BY: TOVA LAMAR MD SIGNED DATE/TIME: 07/01/24913 CC: [place] [id number] Ph: [phone] DIAGNOSTIC IMAGING Diagnostic Imaging Report : [id number] Signed PATIENT: DAVID SMITH ACCT: [id number] UNIT: [id number] : 1985 LOC: [facility] ROOM / BED: [address] [place] [address] AGE / SEX: 39 / M ADM STATUS: ADM IN SERVICE 07 ORDERING PHYSICIAN: TERRY OWUSU RESIDENT PROCEDURE(s): CXR1 - CHEST XRAY 1 VIEW REASON: sob ORDER NUMBER(s): [id number], ACCESSION NUMBER(s): [id number] CHEST RADIOGRAPH Indication:sob Technique: Single frontal view of the chest was obtained Comparison: None FINDINGS: Lines and Tubes: None Lungs: No focal consolidation. Pleura: No effusion. No pneumothorax. Cardiomediastinal contours: Unremarkable Bones: No acute osseous abnormality. IMPRESSION: No acute cardiopulmonary disease. ATED BY: MANPREET SEGURA DO DICTATED DATE/TIME: 06/29/242254 SIGNED BY: MANPREET SEGURA DO SIGNED DATE/TIME: 06/29/242254 CC: [place] [id number] Ph: [phone] DIAGNOSTIC IMAGING Diagnostic Imaging Report : [id number] Signed PATIENT: DAVID CALRISLE ACCT: [id number] UNIT: [id number] : 1985 LOC: ER ROOM / BED: / AGE / SEX: 39 / M ADM STATUS: REG ER SERVICE 16 ORDERING PHYSICIAN: CONNIE BRENNER DO PROCEDURE(s): ABPL - CT AB PEL WO CON-NO ORAL OR IV REASON: Epigastric pain with N/V ORDER NUMBER(s): [id number], ACCESSION NUMBER(s): [id number] CT ABDOMEN AND PELVIS WITHOUT CONTRAST CLINICAL HISTORY: Epigastric pain with N/V TECHNIQUE: Multidetector CT of the abdomen was performed from lung bases to pubic symphysis. Imaging was performed without IV contrast. Axial, coronal and sagittal multiplanar reformats were obtained from the axial data set by the technologist. Radiation optimization: All CT scans at this facility use at least one of these dose optimization techniques: automated exposure control mA and/or kV adjustment per patient size (includes targeted exams where dose is matched to clinical indication) or iterative reconstruction. Radiation Dose Information: CT Dose: CTDI volume is 7.65 mGy. Dose-length product is 393.19 mGy*cm Comparison: None FINDINGS: [Findings] Evaluation of the abdominal viscera is limited without intravenous contrast. There is fat stranding along the body and tail of the pancreas compatible with acute pancreatitis. There is no discrete pancreatic fluid collection. There is no evidence of a pancreatic cyst or obvious pancreatic lesion. There is fatty infiltration of the liver. There is no suspicious appearing hepatic lesion. The gallbladder, kidneys, adrenal glands, and spleen appear within normal limits. There is no gross evidence of abdominal lymphadenopathy. There is no free fluid or free air. The stomach grossly appears unremarkable. The small and large bowel loops demonstrate normal caliber and appear within normal limits.. The abdominal aorta and IVC appear within normal limits. The bladder appears unremarkable. The prostate gland appears within normal limits. There is no gross evidence of a pelvic mass or lymphadenopathy. There is no free fluid collection. Lung bases are clear. There is no acute osseous abnormality. IMPRESSION: 1. Fat stranding along the body and tail of the pancreas compatible with acute pancreatitis. There is no discrete pancreatic fluid collection. 2. Hepatic steatosis. HS:Y ATED BY: BRADLEY HOLLAND MD DICTATED DATE/TIME: 06/29/241652 SIGNED BY: BRADLEY HOLLAND MD SIGNED DATE/TIME: 06/29/241652 CC: PHYSICIAN,NON S ORDERED: MRSAS - Procedure Result - MRSA Screen Final RESULT NEGATIVE No MRSA detected. Methodology: DNA Amplification This is an automated qualitative in vitro diagnostic test for the direct detection of methicillin-resistant Staphylococcus aureus (MRSA) DNA from nasal swabs that utilizes real-time polymerase chain reaction (PCR) and flourogenic target-specific hybridization probes for the detection of the amplified DNA. END OF REPORT Condition at Discharge: Fair Final Diagnosis/Problems List # Acute pancreatitis due to Hypertriglyceridemia # acute hyper triglyceridemia with a baseline of undiscovered familial high TG # SIRS reaction , resolved. # hypovolemic hyponatremia improved. # mild hypokalemia, 3.3 this morning, supplements provided # DKA vs starvation ketosis, resolved # Uncontrolled diabetes mellitus, newly discovered # Dyslipidemia on statin # anion gap metabolic acidosis # severe hyperglycemia bc newly diagnosed T2DM versus type 1 DM # hypophosphatemia, resolved. # Acute alcohol abuse # likely fatty liver disease Discharge Disposition: Home Discharge Instruct/Medications Diet: Consistent carbohydrate, Cardiac 2g Na,low cholest (2 gm sodium, low cholesterol) Activity: No Restrictions, As Tolerated Follow Up/Referral: Discharge clinic within 7 days of discharge. Needs to follow up PCP. Needs further workup for familial hyper TG and Diabetes. Medications: Insulin, Atorvastatin as per OCT Discharge Statement: "Patient was advised to return to the ER or call 911 if any headaches, dizziness, shortness of breath, chest pain, abdominal pain, bleeding, fevers, or worsening of medical condition. Patient was counseled about treatment plan, medications, possible side effects, patientverbalized understanding. All questions were answered to the best of my ability. This discharge took greater then 30 minutes in planning, reviewing documentation, counseling the patient, and discussing with other team members." ASSESSMENT ASSESSMENT Assessment Date of Service: Jul 03, 2024 Billing Provider: SYLVESTER ELKINS MD Common Visit Codes: 17593-PZW/OBS DISCH DAY >30min Coding Comment Comment I saw and evaluated the patient. I reviewed the residents note and agree with findings and plan as documented in the residents note. DENIA NAVA RESIDENT Jul 03, 2024 13:09 SYLVESTER ELKINS MD Jul 03, 2024 21:02
[2024-07-03] MEDS: POTASSIUM EFFERVESENT TAB 25 MEQ PO ONE (14:39)
[2024-07-03] MEDS ORDERED: LANC-336 XX (16:42)
[2024-07-03] MEDS ORDERED: ATOR-47 PO (16:42)
[2024-07-03] MEDS ORDERED: BLOO1KIT60 XX (16:42)
[2024-07-03 17:00] VITALS: BP 112/71; PULSE 84; RESP 17; TEMP 98.5; O2SAT 93
[2024-07-03] MEDS ORDERED: ATORVASTATIN 20 MG TAB PO SCH (22:00)
== END 2024-07-03 18:25 | disposition home or self-care (01) | DRG 282 ==
LOC: ER 16:15 → OVERFLOW 20:20 → TELE 22:06 → DOU IN ICU 06-30 10:28 → TELE-WESTW 07-02 18:47
PROVIDERS: ADMIT Student in an Organized Health Care Education/Training Program; ATTEND Student in an Organized Health Care Education/Training Program
DX: K85.90 Acute pancreatitis without necrosis or infection, unspecified (principal); E11.10 Type 2 diabetes mellitus with ketoacidosis without coma; E87.0 Hyperosmolality and hypernatremia; R65.10 Systemic inflammatory response syndrome (SIRS) of non-infectious origin without acute organ dysfunction; E88.89 Other specified metabolic disorders; E86.1 Hypovolemia; K76.0 Fatty (change of) liver, not elsewhere classified; E78.1 Pure hyperglyceridemia; T73.0XXA Starvation, initial encounter; E11.65 Type 2 diabetes mellitus with hyperglycemia; F10.10 Alcohol abuse, uncomplicated; Y90.0 Blood alcohol level of less than 20 mg/100 ml
CPT/HCPCS: 36415; 36600; 71045; 74176; 76705; 80048; 80053; 80061; 80307; 80320; 81001; 82010; 82306; 82607; 82805; 82962; 83036; 83605; 83615; 83690; 83735; 83930; 84100; 84439; 84443; 84478; 84481; 84484; 85025; 87081; 99291; G0378; J1815; J1885; J2003; J2405; J3480

== ENCOUNTER → 2024-07-11 | Outpatient (CLI) | payer MEDICAID ==
[~2024-07-11] MED LIST: ATOR-47 PO; BLOO1KIT60 XX; INSLANTI SC; LANC-336 XX
[2024-07-11 15:34] LABS: Chloride 97 mmol/L (98-107); Potassium 4.5 mmol/L (3.5-5.1); Sodium 133 mmol/L (136-145)
[2024-07-11 15:35] LABS: Anion Gap 9 (5-15); Calcium 10.3 mg/dL (8.7-10.4); Carbon Dioxide 27 mmol/L (20-31)
[2024-07-11 15:40] LABS: BUN/Creatinine Ratio 7.4 (10.0-20.0); Blood Urea Nitrogen 8 mg/dL (9-23)
[2024-07-11 15:51] LABS: Glucose 419 mg/dL (74-106)
== END | disposition home or self-care (01) ==
LOC: LAB 14:14
PROVIDERS: ATTEND Internal Medicine
DX: E11.9 Type 2 diabetes mellitus without complications (principal)
CPT/HCPCS: 36415; 80048; 84153